=== PATIENT | male | born 1995 | race Caucasian/White ===

== ENCOUNTER 2019-03-25 04:32 | Inpatient (IN) | payer MEDICAID, SELFPAY ==
[2019-03-25] VITALS (55 sets, daily range): BP systolic 90–158; BP diastolic 55–108; PULSE 81–158; RESP 12–26; TEMP 36.6–37.1; O2SAT 96–100
--- NOTE | 2019-03-25 04:30 | DI.RAD_ITS ---
EXAM: XR PORTABLE CHEST AP CLINICAL HISTORY: shortness of breath. TECHNIQUE: 2D digital imaging was performed. COMPARISON: No exams were available for comparison FINDINGS: LUNGS: Clear. No pleural abnormality seen. HEART: Normal. MEDIASTINUM: Normal. OTHER FINDINGS: None. IMPRESSION: No acute pulmonary findings.
--- NOTE | 2019-03-25 04:42 | ED.GENADUL_ITS ---
Discharge Plan Disposition Patient Disposition: [facility] INPATIENT Condition: Serious Discharge Details Chief Complaint: Nausea/Vomit/Diar Clinical Impression: DKA (diabetic ketoacidoses) Primary Care Provider: Ashly,Local ED Provider: Clayton Jones Home Meds and New Rx's Prescriptions: No Action Lantus Solostar U-100 Insulin 100 unit/mL (3 mL) Insulin Pen 27 unit SUBCUT DAILY RF: 0 Medical Decision Making 23 yo male who initially stated he had no medications until his mother spoke up and informed he is on insulin, comes in with 2 days of n/v with some mild epigastric pain. Denies fevers, chills, diarrhea, recent travel, does use marijuana occasionally no other drug use. HE has soft nontender abdomen. HE doesn't seem to know a lot about his diabetes, apparently was diagnosed in january and when asked what his last blood sugar was was over 300 last night around 6pm. On arrival he appears dehydrated, is having kussmaul breathing and has bgfs of over 500. Suspect he is in dka from nonideal insulin management. Will obtain labs, give IVF and monitor. pt's labs show glucose over 500, pH of 7.01 consistent with dka. Will start on half normal saline with 20mEq of K and start insulin drip. Pt remains hd stable, feels mildly better after zofran and IVF. Spoke with Dr. Wilson who will admit to the ICU Differential Diagnosis Differential Diagnosis: dka, gastroenteritis, insulin noncompliance Lab Data Lab results reviewed: Yes I reviewed the patient's lab results. HPI General Mode of arrival: ambulatory . Date/Time Provider Initiated Documentation: 03/25/19 04:34 . Limitations to Documentation: no limitations . Information obtained by: patient . History of Present Illness 23 year old M presents to the emergency department with the chief complaint of nausea and vomit, Patient started experiencing this day(s) (2) and it has been constant. No relieving factors improve symptom(s), No exacerbating factors reported . Patient did receive the following treatments prior to arrival, none Related Data Home Medications Medication Instructions Recorded Confirmed insulin glargine [Lantus Solostar 27 unit SUBCUT DAILY 03/25/19 03/25/19 U-100 Insulin] Allergies Allergy/AdvReac Type Severity Reaction Status Date / Time coconut oil Allergy Severe ANAPHYLAXIS Unverified 02/10/15 09:00 AND HIVES General Stated Complaint: Nausea/Vomit/Diar MAGDALENA: 3 Review of Systems All systems reviewed & are unremarkable except as noted in HPI and below Constitutional Constitutional: Denies chills, Denies fever(s) and Denies weakness Cardiovascular Cardiovascular: Denies chest pain and Denies dyspnea Respiratory Respiratory: Denies cough and Denies dyspnea Genitourinary Genitourinary: Denies dysuria Integumentary/Breasts Skin/Breast: Denies rash Neurologic Neurologic: Denies weakness [facility] Medical History (Updated 03/25/19 @ 05:30 by Clayton Jones MD) Diabetes (Chronic) Social History Smoking/Tobacco Use Status: Never Alcohol Intake: former Drug use: Occasionally Substance use type: marijuana Additional Social history: pt is not alone to assess privately; mother brings pt in Exam Const General: other (tired) Orientation: alert HENMT Head: normal to inspection Ears: external ears normal General nose exam: external nose normal Mouth: mucous membranes dry Eyes General: appearance normal, both eyes and all related structures Neck Neck: normal visual inspection Resp Effort & Inspection: other (kussmaul) Cardio Rate: tachycardic Skin General skin exam: no rashes or lesions noted Neuro General: alert and oriented x3 Extrem General: normal to inspection Psych Mental Status: mental status grossly normal Course Vital Signs Vital signs: Vital Signs Temperature 36.6 C 03/25/19 04:35 Pulse 144 H 03/25/19 04:35 Respiratory Rate 20 03/25/19 04:35 Blood Pressure 144/89 H 03/25/19 04:35 Pulse Oximetry 98 03/25/19 04:35 Temperature 36.6 C 03/25/19 04:35 Pulse 144 H 03/25/19 04:35 Respiratory Rate 20 03/25/19 04:35 Blood Pressure 144/89 H 03/25/19 04:35 Pulse Oximetry 98 03/25/19 04:35 Pain Level 7 03/25/19 04:35 Critical Care Time Critical Care Time Critical Care Time: Yes Total Critical Care Time: 45 (minutes) Attestation: Frequent reassessments, lab review and initiating insulin drip in patient with DKA and potential to deteriorate at any time
[2019-03-25] MEDS: Normal Saline 1,000 ML 1000 ML IV (04:48)
[2019-03-25] MEDS: Ondansetron 4 MG/2 ML VIAL IVP (04:49)
[2019-03-25 04:55] LABS: Abs Immature Grans 0.12 k/cumm (0.0-0.09); Absolute Basophil Count 0.04 k/cumm (0.0-0.2); Absolute Lymphocyte Count 1.15 k/cumm (1.2-3.4); Absolute Monocyte Count 0.68 k/cumm (0.11-0.7); Absolute Neutrophil Count 17.89 k/cumm (1.2-6.7); Basophils % 0.2; HCO3 (Venous) 6 mmol/L (22-28); HCT 53.9 % (40.0-50.0); Immature Grans % 0.6 %; Lymphocytes % 5.8; Mean Corp. HGB Concentration 35.8 g/dL (32.0-36.0); Mean Corpuscular Volume 83.7 fL (80-95); Mean Platelet Volume 10.3 fL (8.0-11.0); Monocytes % 3.4; O2 Sat (Venous) 73 % (70-80); Platelet Count 558 x1000/uL (130-400); RBC 6.44 m/cumm (4.50-6.00); RBC Distribution Width 12.6 % (11.8-14.1); TCO2 (Venous) 6 mmol/L (22-29); White Blood Cell Count 19.88 k/cumm (4.4-10.8); pCO2 (Venous) 25 mm/Hg (34-47); pO2 (Venous) 44 mm/Hg (28-44)
[2019-03-25 05:02] LABS: pH (Venous) 7.01 (7.35-7.45)
[2019-03-25 05:11] LABS: ALT 16 U/L (16-63); AST 17 U/L (15-37); Albumin 5.1 g/dL (3.4-5.0); Alkaline Phosphatase 120 U/L (46-116); Anion Gap 33.9 mmol/L (3-11); BUN 21 mg/dL (7-18); Bilirubin, Total 0.5 mg/dL (0.2-1.0); CO2 8.1 mmol/L (21.0-32.0); Calcium 9.2 mg/dL (8.5-10.1); Chloride 95 mmol/L (98-107); Estimated GFR 41.99 (mL/min/1.73m2); Lipase 138 U/L (73-393); Magnesium 2.3 mg/dL (1.8-2.4); Potassium 4.6 mmol/L (3.5-5.1); Sodium 137 mmol/L (136-145); Total Protein 9.9 g/dL (6.4-8.2)
[2019-03-25 05:14] LABS: Glucose 536 mg/dL (74-106)
[2019-03-25 05:21] LABS: Bilirubin Small (Negative); Blood Moderate (Negative); Clarity Clear (Clear); Glucose 500 mg/dL (Negative); Ketones >=160 mg/dL (Negative); Leukocyte Esterase Negative (Negative); Nitrite Negative (Negative); Specific Gravity >= 1.030 (1.005-1.025); Urobilinogen 0.2 EU/dL (Up TO 0.2); pH 5.5 (5-8)
--- NOTE | 2019-03-25 05:22 | DI.VRAD_ITS ---
PROCEDURE INFORMATION: Exam: XR Chest, 1 View Exam date and time: 03/25/2019 4:59 AM Age: 23 years old Clinical indication: Shortness of breath; Patient HX: SOB; Additional info: Dka TECHNIQUE: Imaging protocol: XR of the chest Views: 1 view. COMPARISON: No relevant prior studies available. FINDINGS: Lungs: Mild chronic interstitial prominence. No consolidation. Pleural space: Unremarkable. No pleural effusion. No pneumothorax. Heart/Mediastinum: Unremarkable. No cardiomegaly. Bones/joints: Unremarkable. IMPRESSION: No acute findings. Dictated and Authenticated by: Andrae Mix MD. Ordering:CORA Arnold MD
[2019-03-25 05:29] LABS: Bacteria Rare HPF (Negative); C & S Indicated? No; Casts Negative LPF (Negative); Crystals Negative HPF (Negative); Epithelial Cells Rare HPF (Negative); Mucus Negative (Negative); WBC Negative HPF (0-5)
[2019-03-25 05:40] LABS: HGB 19.3 g/dL (13.5-17.5)
[2019-03-25 05:43] LABS: Polychromasia Present
[2019-03-25] MEDS: INSULIN REGULAR IN 0.9 % NACL 100 UNIT/100 ML BAG 6.5 UNIT IV (05:50)
--- NOTE | 2019-03-25 06:27 | HPE_ITS ---
Date of service: 03/25/19 Time of Service: 06:27 Assessment and Plan Assessment and plan (1) Type 1 diabetes mellitus: Status: Acute Assessment and plan: Relatively new onset type 1 diabetes. This is his third hospitalization. This admission appears to be precipitated by an acute gastroenteritis with severe dehydration. Plan is for an insulin infusion, IV fluids, gradually reintroduce oral nutrition. Every hour fingersticks with adjustments as per [place] protocol. (2) DKA (diabetic ketoacidoses): Status: Acute Assessment and plan: Currently on half normal saline with 20 mEq potassium . Will add D5 when blood sugar below 200. Recheck basic metabolic panel at 11 AM. History of Present Illness History of Present Illness Chief Complaint: DKA/type 1 diabetes Narrative: This is a 23-year-old male diagnosed with type 1 diabetes in January 2019. He was hospitalized at [facility]. He states he was initially started on oral agents then on his second admission was transition to insulin. He presented to the emergency room overnight with severe nausea and vomiting for the last 3 days. He has not been able to hold any nutrition down. His blood sugars were in the 300s. On presentation his blood sugar was greater than 500, pH 7.01, bicarb 8.1, anion gap 33.9. He received normal saline bolus x1 L and then started on half-normal saline with 20 mEq potassium at 250 cc an hour. He was started on an insulin infusion at 6.5 units/h. He is transferred to the ICU for close monitoring. Review of Systems Narrative: He has been sick for the last 3 days with severe nausea and vomiting. No chest pain no shortness of breath. He has no respiratory symptoms. He is not having diarrhea. Overall achy. No other complaints. REPLACED BY [facility] Medical History (Updated 03/25/19 @ 06:38 by Clayton Wilson MD) ADHD (attention deficit hyperactivity disorder) (Acute) Hepatitis C (Chronic) Right hand fracture (Acute) s/p pinning, [facility] Tobacco use (Acute) Type 1 diabetes mellitus (Acute) Social History (Updated 03/25/19 @ 06:42 by Clayton Wilson MD) Smoking/Tobacco Use Status: Current every day Alcohol Intake: former Year quit: 2018 Drug use: Occasionally Substance use type: marijuana Household members: family Additional Social history: Currently lives with his mother. Previously employed until the onset of type 1 diabetes. Completed 12th grade. Meds Home Medications and Allergies Home Medications Medication Instructions Recorded Confirmed Type insulin glargine [Lantus Solostar 27 unit SUBCUT DAILY 03/25/19 03/25/19 History U-100 Insulin] Allergies Allergy/AdvReac Type Severity Reaction Status Date / Time coconut oil Allergy Severe ANAPHYLAXIS Unverified 02/10/15 09:00 AND HIVES Exam Narrative Exam Narrative: On exam he has an odor of ketones. He is alert and able to answer questions appropriately. His respiratory rate is rapid. Pulse is rapid. He is slightly jittery. His pulse rate climbs and his blood pressure drops when he stands. His lung exam is clear on the right and left. Heart is rapid but without murmur. Abdomen is flat soft and nontender no HSM detected. Lower extremities no edema. Neurologically no focal deficits. Results Labs Result diagrams: 03/25/19 04:40 03/25/19 04:40 Labs: Laboratory Results - last 24 hr 03/25/19 03/25/19 03/25/19 04:40 04:40 04:40 WBC 19.88 H RBC 6.44 H Hgb 19.3 H* Hct 53.9 H MCV 83.7 MCH 30.0 MCHC 35.8 RDW 12.6 Plt Count 558 H MPV 10.3 Immature Gran % 0.6 Neutrophils % 90.0 Lymphocytes % 5.8 Monocytes % 3.4 Eosinophils % 0.0 Basophils % 0.2 Absolute Neutrophils 17.89 H Absolute Lymphocytes 1.15 L Absolute Monocytes 0.68 Absolute Eosinophils 0.00 Absolute Basophils 0.04 RBC Morphology See below Polychromasia Present VBG pH 7.01 L* VBG pCO2 25 L VBG pO2 44 VBG HCO3 6 L VBG Total CO2 6 L VBG O2 Saturation 73 VBG Base Excess < -15.0 L Sodium 137 Potassium 4.6 Chloride 95 L Carbon Dioxide 8.1 L Anion Gap 33.9 H BUN 21 H Creatinine 2.00 H Estimated GFR/1.73 m2 41.99 Glucose 536 H* Calcium 9.2 Magnesium 2.3 Total Bilirubin 0.5 AST 17 ALT 16 Alkaline Phosphatase 120 H Total Protein 9.9 H Albumin 5.1 H Lipase 138 Urine Color Urine Clarity Urine pH Ur Specific [place] Urine Protein Urine Ketones Urine Blood Urine Nitrite Urine Bilirubin Urine Urobilinogen Ur Leukocyte Esterase Urine RBC Urine WBC Ur Epithelial Cells Urine Crystals Urine Bacteria Urine Casts Urine Mucus Ur Culture Indicated? Urine Glucose 03/25/19 05:09 WBC RBC Hgb Hct MCV MCH MCHC RDW Plt Count MPV Immature Gran % Neutrophils % Lymphocytes % Monocytes % Eosinophils % Basophils % Absolute Neutrophils Absolute Lymphocytes Absolute Monocytes Absolute Eosinophils Absolute Basophils RBC Morphology Polychromasia VBG pH VBG pCO2 VBG pO2 VBG HCO3 VBG Total CO2 VBG O2 Saturation VBG Base Excess Sodium Potassium Chloride Carbon Dioxide Anion Gap BUN Creatinine Estimated GFR/1.73 m2 Glucose Calcium Magnesium Total Bilirubin AST ALT Alkaline Phosphatase Total Protein Albumin Lipase Urine Color Yellow Urine Clarity Clear Urine pH 5.5 Ur Specific [place] >= 1.030 H Urine Protein >=300 H Urine Ketones >=160 H Urine Blood Moderate H Urine Nitrite Negative Urine Bilirubin Small H Urine Urobilinogen 0.2 Ur Leukocyte Esterase Negative Urine RBC 3-5 H Urine WBC Negative Ur Epithelial Cells Rare Urine Crystals Negative Urine Bacteria Rare Urine Casts Negative Urine Mucus Negative Ur Culture Indicated? No Urine Glucose 500 H Last Vital Signs Temp 36.6 C 03/25/19 04:35 Pulse 144 H 03/25/19 04:35 Resp 20 03/25/19 04:35 BP 144/89 H 03/25/19 04:35 Pulse Ox 98 03/25/19 04:35
[2019-03-25] MEDS: POTASSIUM CHLORIDE/D5-0.45NACL 1,000 ML 150 MEQ IV (08:03)
--- NOTE | 2019-03-25 08:28 | W.PM.PROGNOT ---
Date of Service Date of service: 03/25/19 Time of Service: 12:48 Assessment and Plan Assessment and plan (1) DKA (diabetic ketoacidoses): Status: Acute Assessment and plan: Remains on insulin gtt. Metabolic acidosis and anion gap are better, but not near normalized. Continue insulin gtt, aggressive IVF. Make NPO as the patient is nauseated and carb intake is likely to make DKA worse at this time. Will give 1/2 of the long acting insulin at this time. Continue to monitor BMP/Mag (next check at 3 pm, then 8 pm, then midnight, then am blood draw). Consult diabetes education. (2) Prerenal acute renal failure: Status: Acute Assessment and plan: Improving with IVF - continue to monitor kidney function. Refuses alexandra catheter - monitor I/O's and daily weights. (3) Type 1 diabetes mellitus: Status: Acute Assessment and plan: Recent diagnosis. At home, on 28 units of lantus Q am and 6 units of novolog with meals. We spoke for a while about not missing lantus even when he is sick. He does not have an clinical laboratory assistant and could benefit from one. Consult diabetes education. For now, start 1/2 dose of lantus and attempt to wean insulin gtt. (4) Dehydration: Status: Acute Assessment and plan: Continue aggressive IVF (5) Leucocytosis: Status: Acute Assessment and plan: Likely due to hemoconcentration as also has thrombocytosis and erythromcytosis on the same draw. Recheck in am. No evidence of acute infectious process at this time. (6) Proteinuria due to type 1 diabetes mellitus: Status: Acute Assessment and plan: May benefit from initiation of an hany-i once out of BLAKE. Would benefit from formal 24 hour urine collection. (7) Discharge planning issues: Status: Acute Assessment and plan: Full code. Keep in ICU. (8) DVT prophylaxis: Status: Acute Assessment and plan: Given BLAKE and critical illness, would merit chemical DVT ppx. Start heparin SC. Total Critical Care Time 45 minutes. Subjective Subjective Interval history since last seen: BG 229 on insulin gtt @ 3 units/hr. Ate lunch. Did not receive coverage. Nauseated. Denies dizziness, chest pain, shortness of breath, abdominal pain. Spent a lot of the day sleeping. Easily arousable. Resp. status ok - 98% on RA, Not tachypneic. Exam Narrative Exam Narrative: General: Somnolent, easily arousable male, laying comfortably in bed, asleep, A&Ox3, no respiratory distress HEENT: EOMI, dry MM Heart: RRR, loud precordial sounds Lungs: CTAB - diminished Abdomen: soft, nontender, nondistended Extremities: no e/c/c BLE's Objective Objective Clinical Data: Abnormal lab results 03/25/19 03/25/19 03/25/19 Range/Units 04:40 04:40 04:40 WBC 19.88 H (4.4-10.8) k/cumm RBC 6.44 H (4.50-6.00) m/cumm Hgb 19.3 H* (13.5-17.5) g/dL Hct 53.9 H (40.0-50.0) % Plt Count 558 H (130-400) x1000/uL Absolute Neutrophils 17.89 H (1.2-6.7) k/cumm Absolute Lymphocytes 1.15 L (1.2-3.4) k/cumm VBG pH 7.01 L* (7.35-7.45) VBG pCO2 25 L (34-47) mm/Hg VBG HCO3 6 L (22-28) mmol/L VBG Total CO2 6 L (22-29) mmol/L VBG Base Excess < -15.0 L (-3-3) mmol/L Chloride 95 L (98-107) mmol/L Carbon Dioxide 8.1 L (21.0-32.0) mmol/L Anion Gap 33.9 H (3-11) mmol/L BUN 21 H (7-18) mg/dL Creatinine 2.00 H (0.70-1.30) mg/dL Glucose 536 H* (74-106) mg/dL Alkaline Phosphatase 120 H (46-116) U/L Total Protein 9.9 H (6.4-8.2) g/dL Albumin 5.1 H (3.4-5.0) g/dL Ur Specific [place] (1.005-1.025) Urine Protein (Negative) mg/dL Urine Ketones (Negative) mg/dL Urine Blood (Negative) Urine Bilirubin (Negative) Urine RBC (0-2) HPF Urine Glucose (Negative) mg/dL 03/25/19 Range/Units 05:09 WBC (4.4-10.8) k/cumm RBC (4.50-6.00) m/cumm Hgb (13.5-17.5) g/dL Hct (40.0-50.0) % Plt Count (130-400) x1000/uL Absolute Neutrophils (1.2-6.7) k/cumm Absolute Lymphocytes (1.2-3.4) k/cumm VBG pH (7.35-7.45) VBG pCO2 (34-47) mm/Hg VBG HCO3 (22-28) mmol/L VBG Total CO2 (22-29) mmol/L VBG Base Excess (-3-3) mmol/L Chloride (98-107) mmol/L Carbon Dioxide (21.0-32.0) mmol/L Anion Gap (3-11) mmol/L BUN (7-18) mg/dL Creatinine (0.70-1.30) mg/dL Glucose (74-106) mg/dL Alkaline Phosphatase (46-116) U/L Total Protein (6.4-8.2) g/dL Albumin (3.4-5.0) g/dL Ur Specific [place] >= 1.030 H (1.005-1.025) Urine Protein >=300 H (Negative) mg/dL Urine Ketones >=160 H (Negative) mg/dL Urine Blood Moderate H (Negative) Urine Bilirubin Small H (Negative) Urine RBC 3-5 H (0-2) HPF Urine Glucose 500 H (Negative) mg/dL Vital Signs Temperature 36.8 C 03/25/19 06:17 Temperature Source Temporal Artery Scan 03/25/19 06:17 Pulse 123 H 03/25/19 06:31 Pulse 121 H 03/25/19 06:31 Respiratory Rate 25 H 03/25/19 06:31 Respiratory Effort 03/25/19 06:17 Respiratory Depth Normal 03/25/19 06:17 Respiratory Pattern Tachypnea 03/25/19 06:17 Blood Pressure 149/88 H 03/25/19 06:31 Blood Pressure Mean 99 03/25/19 06:31 Pulse Oximetry 100 03/25/19 06:31 Oxygen Delivery Method Room Air 03/25/19 06:17 Oxygen Flow Rate 0 03/25/19 06:17 Pain Level 7 03/25/19 04:35 Intake & Output 03/24/19 03/24/19 03/25/19 11:59 23:59 11:59 Intake Total 1109.425 / 1109.425 Output Total 450 / 450 Balance 659.425 / 659.425 Weight 61.5 kg Intake: IV 1009.425 / 1009.425 Oral 100 / 100 Output: Urine 450 / 450 Other: Urine Color Yellow Urine Appearance Clear Urine Odor Normal Emesis Description Bile Laboratory Results WBC 19.88 k/cumm (4.4-10.8) H 03/25/19 04:40 RBC 6.44 m/cumm (4.50-6.00) H 03/25/19 04:40 Hgb 19.3 g/dL (13.5-17.5) H* 03/25/19 04:40 Hct 53.9 % (40.0-50.0) H 03/25/19 04:40 MCV 83.7 fL (80-95) 03/25/19 04:40 MCH 30.0 pg (27.0-33.0) 03/25/19 04:40 MCHC 35.8 g/dL (32.0-36.0) 03/25/19 04:40 RDW 12.6 % (11.8-14.1) 03/25/19 04:40 Plt Count 558 x1000/uL (130-400) H 03/25/19 04:40 MPV 10.3 fL (8.0-11.0) 03/25/19 04:40 Immature Gran % 0.6 % 03/25/19 04:40 Neutrophils % 90.0 03/25/19 04:40 Lymphocytes % 5.8 03/25/19 04:40 Monocytes % 3.4 03/25/19 04:40 Eosinophils % 0.0 03/25/19 04:40 Basophils % 0.2 03/25/19 04:40 Absolute Neutrophils 17.89 k/cumm (1.2-6.7) H 03/25/19 04:40 Absolute Lymphocytes 1.15 k/cumm (1.2-3.4) L 03/25/19 04:40 Absolute Monocytes 0.68 k/cumm (0.11-0.7) 03/25/19 04:40 Absolute Eosinophils 0.00 k/cumm (0.0-0.7) 03/25/19 04:40 Absolute Basophils 0.04 k/cumm (0.0-0.2) 03/25/19 04:40 RBC Morphology See below 03/25/19 04:40 Polychromasia Present 03/25/19 04:40 VBG pH 7.01 (7.35-7.45) L* 03/25/19 04:40 VBG pCO2 25 mm/Hg (34-47) L 03/25/19 04:40 VBG pO2 44 mm/Hg (28-44) 03/25/19 04:40 VBG HCO3 6 mmol/L (22-28) L 03/25/19 04:40 VBG Total CO2 6 mmol/L (22-29) L 03/25/19 04:40 VBG O2 Saturation 73 % (70-80) 03/25/19 04:40 VBG Base Excess < -15.0 mmol/L (-3-3) L 03/25/19 04:40 Sodium 137 mmol/L (136-145) 03/25/19 04:40 Potassium 4.6 mmol/L (3.5-5.1) 03/25/19 04:40 Chloride 95 mmol/L (98-107) L 03/25/19 04:40 Carbon Dioxide 8.1 mmol/L (21.0-32.0) L 03/25/19 04:40 Anion Gap 33.9 mmol/L (3-11) H 03/25/19 04:40 BUN 21 mg/dL (7-18) H 03/25/19 04:40 Creatinine 2.00 mg/dL (0.70-1.30) H 03/25/19 04:40 Estimated GFR/1.73 m2 41.99 (mL/min/1.73m2) 03/25/19 04:40 Glucose 536 mg/dL (74-106) H* 03/25/19 04:40 Calcium 9.2 mg/dL (8.5-10.1) 03/25/19 04:40 Magnesium 2.3 mg/dL (1.8-2.4) 03/25/19 04:40 Total Bilirubin 0.5 mg/dL (0.2-1.0) 03/25/19 04:40 AST 17 U/L (15-37) 03/25/19 04:40 ALT 16 U/L (16-63) 03/25/19 04:40 Alkaline Phosphatase 120 U/L (46-116) H 03/25/19 04:40 Total Protein 9.9 g/dL (6.4-8.2) H 03/25/19 04:40 Albumin 5.1 g/dL (3.4-5.0) H 03/25/19 04:40 Lipase 138 U/L (73-393) 03/25/19 04:40 Urine Color Yellow (Yellow) 03/25/19 05:09 Urine Clarity Clear (Clear) 03/25/19 05:09 Urine pH 5.5 (5-8) 03/25/19 05:09 Ur Specific [place] >= 1.030 (1.005-1.025) H 03/25/19 05:09 Urine Protein >=300 mg/dL (Negative) H 03/25/19 05:09 Urine Ketones >=160 mg/dL (Negative) H 03/25/19 05:09 Urine Blood Moderate (Negative) H 03/25/19 05:09 Urine Nitrite Negative (Negative) 03/25/19 05:09 Urine Bilirubin Small (Negative) H 03/25/19 05:09 Urine Urobilinogen 0.2 EU/dL (Up TO 0.2) 03/25/19 05:09 Ur Leukocyte Esterase Negative (Negative) 03/25/19 05:09 Urine RBC 3-5 HPF (0-2) H 03/25/19 05:09 Urine WBC Negative HPF (0-5) 03/25/19 05:09 Ur Epithelial Cells Rare HPF (Negative) 03/25/19 05:09 Urine Crystals Negative HPF (Negative) 03/25/19 05:09 Urine Bacteria Rare HPF (Negative) 03/25/19 05:09 Urine Casts Negative LPF (Negative) 03/25/19 05:09 Urine Mucus Negative (Negative) 03/25/19 05:09 Ur Culture Indicated? No 03/25/19 05:09 Urine Glucose 500 mg/dL (Negative) H 03/25/19 05:09 CXR: No acute pulmonary findings.
[2019-03-25] MEDS: POTASSIUM CHLORIDE/0.9% NACL 1,000 ML 150 MEQ IV (08:39)
[2019-03-25] MEDS: Acetaminophen 325 MG TAB PO (10:24)
[2019-03-25 11:01] LABS: HCO3 (Venous) 10 mmol/L (22-28); O2 Sat (Venous) 96 % (70-80); TCO2 (Venous) 9 mmol/L (22-29); pCO2 (Venous) 24 mm/Hg (34-47); pH (Venous) 7.24 (7.35-7.45); pO2 (Venous) 78 mm/Hg (28-44)
[2019-03-25 11:17] LABS: Anion Gap 23.4 mmol/L (3-11); BUN 18 mg/dL (7-18); CO2 10.6 mmol/L (21.0-32.0); CREATININE 1.34 mg/dL (0.70-1.30); Calcium 8.8 mg/dL (8.5-10.1); Chloride 103 mmol/L (98-107); Glucose 269 mg/dL (74-106); Potassium 4.2 mmol/L (3.5-5.1); Sodium 137 mmol/L (136-145)
--- NOTE | 2019-03-25 12:33 | W.INDIABCONS ---
Date of service: 03/25/19 Time of Service: 12:33 Diabetes Inpatient Consult DESCRIPTION/ASSESSMENT: Appreciate diabetes consult for Ted Egan who is here with DKA in presence of severe nausea and vomiting for 3 days prior. Recently diagnosed type 1 with strong family history of brother, father, grandmother with diabetes. Mr. Egan states he did not administer any insulin while he was sick because he was sleeping through unless he was vomiting. States he was instructed to take 28u Lantus and mealtime insulin correction which was always 6 units. States blood sugars consistently in the 300s. States he does not know about requiring insulin when eating carbohydrate. BMI 18 Attempted to visit him again to discuss carbohydrate sources, portions, distribution, however states he has a headache. Education visit postponed until he feels better. He remains on insulin drip at this time. Blood sugars down to 269 this AM unable to see frequent fingersticks in EMR. INTERVENTION: Ted is eating lunch but there is no concomitant insulin dose for carbohydrate at this time. This is suggested at 1 unit covers 15 grams carbohydrate which may need to be advanced to 1 unit covers 10 grams based on his home insulin regimen of total daily insulin dosing of 46units daily. PLAN: Will follow up with him for self management support focused on insulin for carbohydrate as standard of care for type 1 diabetes. Will follow blood sugars Time Spent in Nutritional Counseling and Treatment: 10 minutes face to face
--- NOTE | 2019-03-25 12:56 | W.NUTCONSULT ---
Date of service: 03/25/19 Time of Service: 12:57 Nutritional Consult ASSESSMENT: 23 year old newly diagnosis Type 1 Diabetic(January 2019) admitted with DKA and acute gastroenteritis and dehydration. Following Diabetic diet with excellent intake. DM consult by CDE pending. Not at nutritional risk at this time. MONITORING AND EVALUATION: weight, po intake, labs Time Spent in Nutritional Counseling and Treatment: 0 time spent face to face
[2019-03-25 13:15] LABS: Hemoglobin A1C 13.2 % (3.8-5.6)
[2019-03-25] MEDS: Pantoprazole 40 MG VIAL IVP (13:42)
[2019-03-25] MEDS: Bacitracin 1 PACKET 2 PACKET TP ×2 (13:43→19:32)
[2019-03-25] MEDS: Normal Saline Flush 10 ML SYR IVP (13:44)
[2019-03-25] MEDS: Heparin 5,000 UNITS/ML VIAL 5000 UNITS SC (13:44)
[2019-03-25 15:40] LABS: Anion Gap 15.6 mmol/L (3-11); BUN 15 mg/dL (7-18); CO2 16.4 mmol/L (21.0-32.0); CREATININE 1.25 mg/dL (0.70-1.30); Chloride 106 mmol/L (98-107); Glucose 198 mg/dL (74-106); Potassium 3.9 mmol/L (3.5-5.1); Sodium 138 mmol/L (136-145)
--- NOTE | 2019-03-25 16:20 | PDOC.CMIN ---
- If Service Date Differs Date of service: 03/25/19 Time of Service: 16:20 Care Management Initial Assess REASON FOR HOSPITALIZATION:: DKA PAST MEDICAL HISTORY/PAST SURGICAL HISTORY:: Medical History (Updated 03/25/19 @ 06:38 by Clayton Wilson MD). ADHD (attention deficit hyperactivity disorder) (Acute). Hepatitis C (Chronic). Right hand fracture (Acute). s/p pinning, [facility]. Tobacco use (Acute). Type 1 diabetes mellitus (Acute) PREVIOUS FUNCTIONAL STATUS/SOCIAL/FAMILY SUPPORTS:: Ted lives in [place] in a mobile home with his mother and 16 year old brother Bernard. He is not currentloy employed; he was recently fired from his job because he missed a lot of work due to illness. Ted is independent at baseline and receives no community services. CURRENT FUNCTIONAL STATUS:: Ted was lying in bed when CM met with him. He was polite and respecttful but did not maintain eye contact or volunteer any information. Ted shared that he was diagnosed with diabetes in January and that he had been sick for a while. When questioned, he stated that he feels he has a good understanding of how to check his glucose levels and how to administer insulin. ADVANCE DIRECTIVES:: none and is not interested Has patient been provided with information about the portal?: Yes Did the patient sign up for the portal?: No CODE STATUS:: Full Code INSURANCE COVERAGE / FINANCIAL ISSUES:: Medicaid CURRENT HOME/COMMUNITY SERVICES/EQUIPMENT:: none PRIMARY CARE PHYSICIAN:: Marissa from [facility] POTENTIAL DISCHARGE NEEDS:: follow up with PCP and possibly endocrinology. PATIENT/FAMILY EDUCATION NEEDS:: Discharge plan, limitations, follow up plan. Ask Me Three. TRANSPORTATION:: via [employer] vehicle with mother PLAN:: Ted will be discharged home whem medically ready. He will follow up with his PCP and possibly Endocrinology. CM will continue to support patient, family an discharge planning needs.
[2019-03-25] MEDS: POTASSIUM CHLORIDE/D5-0.9%NACL 1,000 ML 150 MEQ IV (16:25)
[2019-03-25] MEDS: Insulin Glargine 300 UNITS/3 ML PEN 14 UNITS SC ×2 (16:33→22:07)
--- NOTE | 2019-03-25 16:43 | PHARADMIT ---
Admission Pharmacy Clinical Review DKA Code Status Full Code Current Weight 61.5 kg Renally Cleared and Narrow Therapeutic Index Meds Crcl ~80 mL/min current meds okay QTc Value / Action Taken QTc 483 none BP Control, Fever BP 134/82 afebrile Electrolytes reviewed within normal limits DVT Prophylaxis heparin Opiate Usage / Scheduled Bowel Regimen Ordered no/prn Plt/SCr for Heparin / Enoxaparin plt 558 SCr 1.25 INR for Warfarin n/a H/H stable, WBC/Bands h/h 19.3/53.9 WBC 19.88 Antibiotic appropriateness none Cultures and Sensitivities none Surgical ABX d/c within 24 hr n/a DM control / Insulin Dosing BG 198 insulin drip ordered, has gotten now doses of insulin glargine Heart Failure (Check EF%) (CRISPIN's, B-Block, Diuretics) none IV to PO Switch n/a Home Meds Reviewed yes Home Meds Not Ordered insulin aspart and insulin glargine (currently on insulin drip. attempting to wean pt from this) Comments watch for the addition of any QTc prolonging meds
[2019-03-25 20:41] LABS: Anion Gap 13.6 mmol/L (3-11); BUN 15 mg/dL (7-18); CO2 18.4 mmol/L (21.0-32.0); CREATININE 1.27 mg/dL (0.70-1.30); Chloride 107 mmol/L (98-107); Glucose 132 mg/dL (74-106); Potassium 3.5 mmol/L (3.5-5.1); Sodium 139 mmol/L (136-145)
[2019-03-25] MEDS: POTASSIUM CHLORIDE/0.9% NACL 1,000 ML 125 MEQ IV (22:08)
[2019-03-26] VITALS (12 sets, daily range): BP systolic 109–130; BP diastolic 61–86; PULSE 56–96; RESP 12–19; TEMP 36.7–37.2; O2SAT 99–100
[2019-03-26 00:48] LABS: BUN 15 mg/dL (7-18); CREATININE 1.07 mg/dL (0.70-1.30); Calcium 8.1 mg/dL (8.5-10.1); Chloride 102 mmol/L (98-107); Glucose 235 mg/dL (74-106); Magnesium 1.7 mg/dL (1.8-2.4); Potassium 3.8 mmol/L (3.5-5.1); Sodium 135 mmol/L (136-145)
[2019-03-26] MEDS: Heparin 5,000 UNITS/ML VIAL 5000 UNITS SC ×2 (01:27→14:23)
[2019-03-26] MEDS: MAGNESIUM SULFATE 1 GM/100 ML BAG IVPB (01:30)
[2019-03-26] MEDS: Insulin Aspart 300 UNITS/3 ML PEN 8 UNITS SC (01:30)
[2019-03-26] MEDS: POTASSIUM CHLORIDE/0.9% NACL 1,000 ML 125 MEQ IV (05:28)
[2019-03-26 06:20] LABS: BE (Venous) -11.9 mmol/L (-3-3); HCO3 (Venous) 14 mmol/L (22-28); O2 Sat (Venous) 99 % (70-80); TCO2 (Venous) 13 mmol/L (22-29); pCO2 (Venous) 28 mm/Hg (34-47); pH (Venous) 7.32 (7.35-7.45); pO2 (Venous) 129 mm/Hg (28-44)
[2019-03-26 06:24] LABS: Abs Immature Grans 0.01 k/cumm (0.0-0.09); Absolute Basophil Count 0.02 k/cumm (0.0-0.2); Absolute Eosinophil Count 0.05 k/cumm (0.0-0.7); Absolute Lymphocyte Count 1.78 k/cumm (1.2-3.4); Absolute Monocyte Count 0.68 k/cumm (0.11-0.7); Absolute Neutrophil Count 5.17 k/cumm (1.2-6.7); Basophils % 0.3; Eosinophils % 0.6; HCT 40.2 % (40.0-50.0); Immature Grans % 0.1 %; Lymphocytes % 23.1; Mean Corp. HGB Concentration 35.8 g/dL (32.0-36.0); Mean Corpuscular Hemoglobin 29.9 pg (27.0-33.0); Mean Corpuscular Volume 83.6 fL (80-95); Mean Platelet Volume 9.7 fL (8.0-11.0); Monocytes % 8.8; Neutrophils % 67.1; RBC 4.81 m/cumm (4.50-6.00); RBC Distribution Width 12.5 % (11.8-14.1); White Blood Cell Count 7.71 k/cumm (4.4-10.8)
[2019-03-26 06:29] LABS: HGB 14.4 g/dL (13.5-17.5); Platelet Count 324 x1000/uL (130-400)
[2019-03-26 06:31] LABS: Anion Gap 16.1 mmol/L (3-11); BUN 15 mg/dL (7-18); CO2 15.9 mmol/L (21.0-32.0); CREATININE 1.05 mg/dL (0.70-1.30); Calcium 7.7 mg/dL (8.5-10.1); Chloride 106 mmol/L (98-107); Glucose 187 mg/dL (74-106); Potassium 3.3 mmol/L (3.5-5.1); Sodium 138 mmol/L (136-145)
[2019-03-26] MEDS: Potassium Chloride 20 MEQ TABCR 40 MEQ PO (08:06)
[2019-03-26] MEDS: Bacitracin 1 PACKET 2 PACKET TP ×2 (08:06→14:23)
[2019-03-26] MEDS: Lactated Ringers 1,000 ML 100 ML IV (08:08)
[2019-03-26 08:23] LABS: BE (Venous) -10.9 mmol/L (-3-3); HCO3 (Venous) 16 mmol/L (22-28); O2 Sat (Venous) 71 % (70-80); TCO2 (Venous) 14 mmol/L (22-29); pCO2 (Venous) 33 mm/Hg (34-47); pH (Venous) 7.28 (7.35-7.45); pO2 (Venous) 34 mm/Hg (28-44)
[2019-03-26] MEDS: Insulin Aspart 300 UNITS/3 ML PEN SC ×2 (08:29→12:08)
[2019-03-26] MEDS: Insulin Aspart 300 UNITS/3 ML PEN 6 UNITS SC ×2 (08:30→12:09)
[2019-03-26] MEDS: Insulin Glargine 300 UNITS/3 ML PEN 15 UNITS SC (08:31)
[2019-03-26 12:20] LABS: BE (Venous) -7.7 mmol/L (-3-3); HCO3 (Venous) 18 mmol/L (22-28); O2 Sat (Venous) 78 % (70-80); TCO2 (Venous) 16 mmol/L (22-29); pCO2 (Venous) 34 mm/Hg (34-47); pH (Venous) 7.33 (7.35-7.45); pO2 (Venous) 38 mm/Hg (28-44)
[2019-03-26 12:33] LABS: Anion Gap 10.9 mmol/L (3-11); BUN 13 mg/dL (7-18); CO2 20.1 mmol/L (21.0-32.0); CREATININE 0.89 mg/dL (0.70-1.30); Calcium 8.2 mg/dL (8.5-10.1); Chloride 104 mmol/L (98-107); Glucose 206 mg/dL (74-106); Sodium 135 mmol/L (136-145)
[2019-03-26] MEDS: Normal Saline Flush 10 ML SYR IVP (14:22)
[2019-03-26] MEDS: Pantoprazole 40 MG VIAL IVP (14:23)
--- NOTE | 2019-03-26 14:49 | DSE_ITS ---
Date of service: 03/26/19 Time of Service: 14:49 DS: Diagnosis Discharge Diagnosis (1) DKA (diabetic ketoacidoses): Status: Acute (2) Prerenal acute renal failure: Status: Acute (3) Type 1 diabetes mellitus: Status: Acute (4) Dehydration: Status: Acute (5) Leucocytosis: Status: Acute (6) Proteinuria due to type 1 diabetes mellitus: Status: Acute Discharge Plan Disposition Patient Disposition: HOME Condition: Stable Discharge Details Chief Complaint: Nausea/Vomit/Diar Clinical Impression: DKA (diabetic ketoacidoses) Reason For Visit: DKA Admit Date/Time: 03/25/19 05:22 Admit Provider: Clayton Wilson Attending Provider: Clayton Wilson [facility] Provider: Clayton Jones Hospital Course Hospital Course: Mr Egan is a 23 year old male with a relatively recent diagnosis of type 1 DM who was admitted to [facility] ICU on 03/25/2019 with a diagnosis of DKA. He required intravenous insulin for less than 24 hours and was transitioned to modified doses of basal bolus insulin. He is meeting with a special educator right now. We are making some modifications to his insulin regimen - specifically, tonight he will take 10 units of lantus, tomorrow morning he will take 24 units of lantus, and on the morning of 03/28/2019, he will transition to 30 units of lantus in am, which he should continue. His prandial (humalog) insulin dose is changing to 8 units AC with a corrective scale of 1:50>200. He is being referred to outpatient diabetic education and endocrinology. He was educated on hypoglycemia, but until this hospitalization was not familiar with the concept. This will need to be reinforced with his PCP. Patient is medically stable for discharge home today. He has a meter and sufficient strips at home. Care for patient as well as completion of his discharge summary took 45 minutes on day of discharge. Home Meds and New Rx's Prescriptions: New nicotine 14 mg/24 hr Patch 24 Hour 14 mg transdermal DAILY PRN PRNQty: 30 RF: 0 Changed insulin lispro [Humalog KwikPen Insulin] 100 unit/mL Insulin Pen See Rx Instructions .ROUTE .COMPLEX Qty: 0 RF: 0 Lantus Solostar U-100 Insulin 100 unit/mL (3 mL) Insulin Pen See Rx Instructions .ROUTE .COMPLEX Qty: 0 RF: 0 Discharge Instructions Instructions: Diabetic Ketoacidosis (DC), Diabetic Hypoglycemia (DC) Additional Instructions: Return to the hospital with any fever, bleeding, chest pain, shortness of breath. Follow up with Dr Umanzor (your PCP) at [facility] ([facility]) on March 29, at 10:45 am. Follow up with Diabetes Education. Follow up with endocrinology. On 03/26/2019, take 10 units of lantus at night. Take 24 units of lantus tomorrow morning (03/27/2019). Take 30 units of lantus on the morning of 03/28/2019 - this is the dose you should take every morning starting on 03/28/2019. Humalog: take 8 units with every meal in addition to the sliding scale: 1 extra unit for every 50 points that your blood sugar is over 200. Call your PCP if your blood sugar is >400. Know signs and symptoms of hypoglycemia. Always have a way to correct hypoglycemia (orange juice, glucose tablets) on you. Referrals: ENDOCRINOLOGY,[facility] [place] [OTHER] - (recent diagnosis of T1DM) Marissa Umanzor [NURSE PRACTITIONER] - 03/29/19 10:45 am (Follow up post admi ssion for DKA) Kristy Uribe [CLINICAL TRIALS SYSTEMS ADMINISTRATOR] - (Diabetes education) Activity:: Activity as Tolerated Equipment/Supplies:: No Equipment Needed Diet:: Carb Counting Discharge Orders Discharge Orders: Discharge Order (Routine); Ordered 03/26/19 Ordered By: Anuradha Huang DS: Summary Status at Discharge Functional status at discharge: independent ambulation Overall status at discharge: patient is back to baseline Mental Status: mental status grossly normal Speech and Movement: speech and movement normal Mood: congruent mood Affect: normal affect Exam Narrative Exam Narrative: General: Awake and alert male, A&Ox3, looks much better HEENT: EOMI, MMM Heart: RRR, loud precordial sounds Lungs: CTAB - diminished Abdomen: soft, nontender, nondistended Extremities: no e/c/c BLE's Psych Mental Status: mental status grossly normal Speech and Movement: speech and movement normal Mood: congruent mood Affect: normal affect DS: Data Vitals/I&O Vitals and I&O: Vital Signs Temperature 36.8 C 03/26/19 11:49 Temperature Source Temporal Artery Scan 03/26/19 11:49 Pulse 60 03/26/19 11:49 Pulse 96 H 03/26/19 12:19 Respiratory Rate 12 03/26/19 12:19 Respiratory Effort 03/26/19 11:49 Respiratory Depth Normal 03/26/19 11:49 Respiratory Pattern Normal 03/26/19 11:49 Blood Pressure 127/86 03/26/19 11:49 Blood Pressure Mean 99 03/26/19 11:49 Blood Pressure Position Supine 03/26/19 11:49 Pulse Oximetry 100 03/26/19 11:49 Oxygen Delivery Method Room Air 03/26/19 11:49 Oxygen Flow Rate 0 03/26/19 11:49 Pain Level 0 03/26/19 11:49 Intake & Output 03/25/19 03/26/19 03/26/19 23:59 11:59 23:59 Intake Total 3895.775 / 5359.933 1901.917 / 1901.917 Output Total 550 / 1450 Balance 3345.775 / 3909.933 1901.917 / 1901.917 Intake: IV 2675.775 / 3699.933 1247.917 / 1247.917 Oral 1220 / 1660 654 / 654 Output: Urine 550 / 1450 Other: Urine Color Light Sandy Urine Appearance Clear Urine Odor Strong Comment pt has not urinated since 11:25 this am- md notified Last void was early a.m. Voiding Methods Urinal Data Completed and Pending Completed studies during hospitalization [Text1]: CXR 03/25/2019: No acute pulmonary findings. Labs on day of discharge: Labs from last 24 hours 03/26/19 03/26/19 03/26/19 12:10 12:10 08:14 WBC RBC Hgb Hct MCV MCH MCHC RDW Plt Count MPV Immature Gran % Neutrophils % Lymphocytes % Monocytes % Eosinophils % Basophils % Absolute Neutrophils Absolute Lymphocytes Absolute Monocytes Absolute Eosinophils Absolute Basophils VBG pH 7.33 L 7.28 L VBG pCO2 34 33 L VBG pO2 38 34 VBG HCO3 18 L 16 L VBG Total CO2 16 L 14 L VBG O2 Saturation 78 71 VBG Base Excess -7.7 L -10.9 L Sodium 135 L Potassium 4.0 D Chloride 104 Carbon Dioxide 20.1 L Anion Gap 10.9 BUN 13 Creatinine 0.89 Estimated GFR/1.73 m2 >= 60.00 Glucose 206 H Calcium 8.2 L Magnesium 03/26/19 03/26/19 03/26/19 06:09 06:09 06:09 WBC 7.71 D RBC 4.81 Hgb 14.4 D Hct 40.2 D MCV 83.6 MCH 29.9 MCHC 35.8 RDW 12.5 Plt Count 324 D MPV 9.7 Immature Gran % 0.1 Neutrophils % 67.1 Lymphocytes % 23.1 Monocytes % 8.8 Eosinophils % 0.6 Basophils % 0.3 Absolute Neutrophils 5.17 Absolute Lymphocytes 1.78 Absolute Monocytes 0.68 Absolute Eosinophils 0.05 Absolute Basophils 0.02 VBG pH 7.32 L VBG pCO2 28 L VBG pO2 129 H VBG HCO3 14 L VBG Total CO2 13 L VBG O2 Saturation 99 H VBG Base Excess -11.9 L Sodium 138 Potassium 3.3 L Chloride 106 Carbon Dioxide 15.9 L Anion Gap 16.1 H BUN 15 Creatinine 1.05 Estimated GFR/1.73 m2 >= 60.00 Glucose 187 H Calcium 7.7 L Magnesium 2.0 03/26/19 03/25/19 03/25/19 00:25 20:22 15:20 WBC RBC Hgb Hct MCV MCH MCHC RDW Plt Count MPV Immature Gran % Neutrophils % Lymphocytes % Monocytes % Eosinophils % Basophils % Absolute Neutrophils Absolute Lymphocytes Absolute Monocytes Absolute Eosinophils Absolute Basophils VBG pH VBG pCO2 VBG pO2 VBG HCO3 VBG Total CO2 VBG O2 Saturation VBG Base Excess Sodium 135 L 139 138 Potassium 3.8 3.5 3.9 Chloride 102 107 106 Carbon Dioxide 13.0 L 18.4 L 16.4 L Anion Gap 20.0 H 13.6 H 15.6 H BUN 15 15 15 Creatinine 1.07 1.27 1.25 Estimated GFR/1.73 m2 >= 60.00 >= 60.00 >= 60.00 Glucose 235 H D 132 H 198 H Calcium 8.1 L 9.0 9.0 Magnesium 1.7 L 2.0 2.0 PFSH Medical History (Updated 03/25/19 @ 12:53 by Anuradha Huang MD) ADHD (attention deficit hyperactivity disorder) (Acute) Hepatitis C (Chronic) Right hand fracture (Acute) s/p pinning, [facility] Tobacco use (Acute) Type 1 diabetes mellitus (Acute) Social History (Updated 03/25/19 @ 06:42 by Clayton Wilson MD) Smoking/Tobacco Use Status: Current every day Alcohol Intake: former Year quit: 2019 Drug use: Occasionally Substance use type: marijuana Household members: family Additional Social history: Currently lives with his mother. Previously employed until the onset of type 1 diabetes. Completed 12th grade.
--- NOTE | 2019-03-26 17:15 | CMDISCH_ITS ---
- If Service Date Differs Date of service: 03/26/19 Time of Service: 17:15 LACE Index Scoring Tool - Questions: Length of Stay (in days): 1 Acuity (Admit via E.D.?): Yes Comorbidities: Diabetes w/o Complication E.D. Visits: 1 - Answers: Total Score: 6 Risk of Readmission: Low Risk Care Management Discharge Reason for Hospitalization: DKA Discharge Plan: Ted will be discharged home this afternoon. He will continue with outpatient diabetes education and a referral has been sent by to [facility] for an Endocrinology consult.Ted was informed about this today and encouraged to go for the appointment when contacted. He will also follow up with his PCP and discharge plan of care. Ted will transport via private vehicle with his mother. Patient/Family Education Needs: Continued education about diabetes management, discharge plan, limitations. Ask Me Three.
--- NOTE | 2019-03-27 07:34 | W.DIABETESNO ---
Date of service: 03/26/19 Time of Service: 07:34 Diabetes Note NOTE: Follow up visit with Ted as he prepares to be discharged with new instructions for mealtime insulin per Dr. Huang. He has been taking Reviewed diabetes food guide focused on identifying carbohydrate sources requiring insulin. Reviewed hypoglycemia symptoms and treatment. Reviewed needle disposal. Discussed impact of physical activity on blood sugar; sick day care focused on taking Lantus even when sick. PLAN: Per Dr. Huang, gave the following instruction sheet: MEALTIME INSULIN DOSING FOR TED When you eat carbohydrate foods (on left page) Take 8 units PLUS Blood Sugar Insulin: 200-250 1 251-300 2 301-350 3 351-400 4 MORNING LANTUS DOSING: Monday night: 10 units Monday mornin units mornin units EVERY MORNING after that: 30 units. Take blood sugar BEFORE each meal to see how much insulin you need to take. Take blood sugar before bed. Have a snack if less than 100. Call [phone] (Rosemarie) if you have a low blood sugar. Carry some kind of sugar with you at all times Time Spent in Nutritional Counseling and Treatment: 20 minutes face to face
== END 2019-03-26 16:30 | disposition home or self-care (01) | DRG 639 ==
LOC: ER 05:36 → ICU 05:57
PROVIDERS: Admitting Provider Family Medicine; Emergency Provider Emergency Medicine; Visit Provider Internal Medicine
DX: E10.10 Type 1 diabetes mellitus with ketoacidosis without coma (principal); R39.2 Extrarenal uremia; Z71.3 Dietary counseling and surveillance; K52.9 Noninfective gastroenteritis and colitis, unspecified; E86.0 Dehydration; D72.829 Elevated white blood cell count, unspecified; F17.210 Nicotine dependence, cigarettes, uncomplicated
CPT/HCPCS: 36415; 36416; 80048; 80053; 82805; 82962; 83690; 96361; 96374; 99223; 99239; 99291; 71045; 81003; 81015; 83036; 83735; 85025; 93005; 93010; J1644; J2405; J3475

== ENCOUNTER 2021-04-07 01:41 | Inpatient (IN) | payer MEDICAID, SELFPAY ==
[2021-04-07] VITALS (207 sets, daily range): BP systolic 95–179; BP diastolic 54–102; PULSE 81–145; RESP 11–34; TEMP 36.4–36.9; O2SAT 98–100
--- NOTE | 2021-04-07 01:15 | RT.EKG_ITS ---
APPROVED REPORT Exam: Resting ECG Reason for Exam: tachy Patient Location: I HR:126 bpm ECG Measurements Heart Rate 126 AXIS VA 127 P 86 QRSd 103 QRS 107 QT 323 T 52 QTc 468 Conclusion Sinus tachycardia PHysician: no stemi, peaking t waves
--- NOTE | 2021-04-07 01:40 | ED.GENADUL_ITS ---
Discharge Plan Disposition Patient Disposition: [facility] INPATIENT Condition: Improving Discharge Details Clinical Impression: DKA (diabetic ketoacidoses), Hyperglycemia, Acidosis, Vomiting, Dehydration, severe Primary Care Provider: Negro Zarate ED Provider: Good Nunez Home Meds and New Rx's Prescriptions: No Action nicotine 14 mg/24 hr Patch 24 Hour 14 mg transdermal DAILY PRN PRNQty: 30 0RF insulin lispro [Humalog KwikPen Insulin] 100 unit/mL Insulin Pen See Rx Instructions .ROUTE .COMPLEX Qty: 0 0RF Rx Instructions: Take 8 units of humalog with meals in addition to the sliding scale - 1 unit of humalog for every 50 points over 200. Call your PCP if your sugar is >400. Lantus Solostar U-100 Insulin 100 unit/mL (3 mL) Insulin Pen See Rx Instructions .ROUTE .COMPLEX Qty: 0 0RF Rx Instructions: take 10 units of lantus tonight before bed. Take 24 units of lantus tomorrow morning (03/27/2019). Take 30 units of lantus on am of 03/28/2019 and continue taking 30 units daily Medical Decision Making 25-year-old male with past medical history of type 1 diabetes, previous hepatitis C, ADHD, presents today for 2 days of vomiting and nausea. Symptoms notably worsened tonight. He has been taking his insulin at home but has been noticing high sugars. He has been unable keep anything down. He denies any diarrhea. He does believe that there is some blood in his vomitus tonight. He is not on any blood thinners. He has had episodes of DKA before, last admission was 1 year ago. He denies any chest pain or shortness of breath. He does admit to mild epigastric discomfort with the nausea. No previous abdominal surgeries. He denies any other sick contacts. No other complaints this time. He was given 4 mg of Zofran via EMS. This did slightly improve his nausea. EMS blood glucose was 490 on most recent check. Exam demonstrates profoundly dry mucous membranes, tachycardia, tachypnea. Mild epigastric tenderness and mild right upper quadrant tenderness but negative De Santiago sign. Symptoms at this time appear inconsistent with acute cholecystitis. Patient demonstrates clear signs and symptoms indicative of diabetic ketoacidosis. Screening EKG shows no evidence of U waves. Doubt pr ofound hypokalemia at this stage. We will start insulin infusion at 0.1 units/kg/h and give 2 L of normal saline for the DKA. We will give Famotidine and Protonix for suspected gastritis/mild GI bleed. Will monitor closely and reassess. Unfortunately there are currently no ICU beds available at [facility]. We will look for other ICU capable hospitals in the area as I suspect the patient will require admission and continued inpatient care. 2:12 AM Laboratory work-up has returned, pH is 6.98, bicarbonate 4, lactate is 2.0. Potassium is 5.3, anion gap is 36, creatinine elevated at 1.7 which is certainly higher than his normal baseline of 0.89. Liver function unremarkable, lipase normal, bilirubin normal. Urinalysis unsurprisingly shows notable ketones, mild proteinuria. Trace blood but no infection. We will continue to aggressively rehydrate as indicated, continue insulin infusion, perform q. hourly Accu-Cheks, and reevaluate electrolyte status in 1 hour. 4:21 AM Hourly repeat mental assessment demonstrates continuing improved mentation. His mental status was notably stable on arrival he is much more alert and attentive at this time. The patient's initial labs demonstrate a notable white count of 25, he had a lack of response on her initial hourly assessment with a repeat VBG and basic metabolic panel. Potassium slightly jessica to 5.6, and although he was feeling better and his heart rate was going down we did give calcium gluconate out of an abundance of precaution for cardiac stabilization. I anticipate his potassium will continue to decline instead of raise. Repeat VBG now shows a pH of 7.02 demonstrating improvement, bicarb remains at 4. Pending repeat potassium and anion gap. Renal function appears to be improving. Lipase normal. We will continue to monitor closely. The patient glucose did drop to 330, we will decrease the insulin drip per the protocol down to 4 units/h. We will reassess after repeat labs return for potential need for glucose s upplementation if indicated. 4:50 AM Patient continues to look even better. Respirations have decreased to a normal rate, heart rate down to the low 120s. Blood pressure remained stable. Repeat labs demonstrate improving pH, potassium is remaining stable, anion gap is starting to close slowly at 27. Repeat blood sugar is 290, we will continue insulin, and replace his fluids now with D5W at twice normal maintenance fluid levels which will be 200 mL/h. He has received 4 L of normal saline total which have demonstrated good improvement. Repeat mental status continued to demonstrate excellent mentation, no signs of obtundation or altered mental status whatsoever. Patient is actually subjectively feeling much much better on reassessment. 7:53 AM Discussed the case with the hospitalist Dr. Oliveros, he agrees with the assessment and plan for admission. Patient will be admitted to the ICU. pH notably improving down to 7.19, bicarb going up to 9. Patient still feeling much better subjectively. I have extensively reviewed the treatment plan with the patient. I have addressed all patient concerns at this time. I have also discussed the plan with the admitting physician and they agree with the current assessment and plan and have agreed to assume responsibility for the patient. All parties demonstrate verbal understanding and agreement with our assessment and plan at this time. The documentation in this chart was dictated using [employer] dictation software. Please excuse any dictation errors. EKG 1: 33 Rate 126, intervals normal, sinus tachycardia, no significant ST elevation or depression. No U waves. T waves do appear slightly peaked. Inverted T waves present in V1. No STEMI. HPI General Date/Time Provider Initiated Documentation: 04/07/21 02:14 . HPI Narrative: 25-year-old male with past medical history of type 1 diabetes, previous hepatitis C, ADHD, presents today for 2 days of vomiting and nausea. Symptoms notably worsened tonight. He has been taking his insulin at home but has been noticing high sugars. He has been unable keep anything down. He denies any diarrhea. He does believe that there is some blood in his vomitus tonight. He is not on any blood thinners. He has had episodes of DKA before, last admission was 1 year ago. He denies any chest pain or shortness of breath. He does admit to mild epigastric discomfort with the nausea. No previous abdominal surgeries. He denies any other sick contacts. No other complaints this time. He was given 4 mg of Zofran via EMS. This did slightly improve his nausea. EMS blood glucose was 490 on most recent check. Related Data Home Medications Medication Instructions Recorded Confirmed insulin glargine 100 unit/mL (3 See Rx Instructions .ROUTE 03/26/19 04/07/21 mL) subcutaneous pen (Lantus .COMPLEX #0 ml Solostar U-100 Insulin) insulin lispro 100 unit/mL See Rx Instructions .ROUTE 03/26/19 04/07/21 subcutaneous pen (Humalog KwikPen .COMPLEX #0 ml (U-100) Insulin) nicotine 14 mg/24 hr daily 14 mg TRANSDERMAL DAILY PRN PRN 03/26/19 transdermal patch #30 ea Previous Rx's Medication Instructions Recorded insulin glargine 100 unit/mL (3 See Rx Instructions .ROUTE 03/26/19 mL) subcutaneous pen (Lantus .COMPLEX #0 ml Solostar U-100 Insulin) insulin lispro 100 unit/mL See Rx Instructions .ROUTE 03/26/19 subcutaneous pen (Humalog KwikPen .COMPLEX #0 ml (U-100) Insulin) nicotine 14 mg/24 hr daily 14 mg TRANSDERMAL DAILY PRN PRN 03/26/19 transdermal patch #30 ea Allergies Allergy/AdvReac Type Severity Reaction Status Date / Time coconut oil Allergy Severe ANAPHYLAXIS Unverified 04/07/21 02:08 AND HIVES General Stated Complaint: Diabetes MADGALENA: 2 Review of Systems All systems reviewed & are unremarkable except as noted in HPI and below PFSH All Active Problems (Updated 04/07/21 @ 07:20 by Good Nunez DO) Hyperglycemia (Acute) Acidosis (Acute) Vomiting (Acute) Dehydration, severe (Acute) DVT prophylaxis (Acute) Discharge planning issues (Acute) Proteinuria due to type 1 diabetes mellitus (Acute) Prerenal acute renal failure (Acute) Leucocytosis (Acute) Dehydration (Acute) Type 1 diabetes mellitus (Acute) DKA (diabetic ketoacidoses) (Acute) Medical History ADHD (attention deficit hyperactivity disorder) Hepatitis C [facility] Social History Smoking/Tobacco Use Status: Current every day Smoking risk assessment performed?: Yes Alcohol Intake: former Year quit: 2019 Drug use: Occasionally Substance use type: marijuana Household members: family Do you feel safe at home: Yes Do you feel safe in your relationship?: Yes Additional Social history: Currently lives with his mother. Previously employed until the onset of type 1 diabetes. Completed 12th grade. Exam Narrative Exam Narrative: 1.Const: Well-nourished, Well-developed, appearing stated age 2.Eyes: PERRL, no conjunctival injection, and symmetrical lids. 3.ENT: Atraumatic external nose and ears. Profoundly dryMM. Neck: Symmetric, trachea midline, No thyromegaly. 4.CVS: +S1/S2, No murmurs or gallops. Peripheral pulses 2+ and equal in all extremities. Brisk capillary refill in all extremities. 5.RESP: Unlabored respiratory effort. Clear to auscultation bilaterally. No wheezes rales or rhonchi 6.GI: Soft, nondistended, mild epigastric tenderness, mild right upper quadrant tenderness, but negative De Santiago sign. No pain at McBurney's point. Mild left upper quadrant achiness. 7.MSK: Normocephalic/Atraumatic, Extremities w/o deformity or ttp No cyanosis or clubbing, Normal movement of all extremities 8.Skin: Warm, Dry. No rashes or lesions. 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 Sensation grossly intact, no focal neurologic deficits. 10.Psych: (AAO) x3. Appropriate mood and affect Course Vital Signs Vital signs: Vital Signs Temperature 36.5 C 04/07/21 01:23 Pulse 138 H 04/07/21 01:23 Respiratory Rate 26 H 04/07/21 01:23 Blood Pressure 179/102 H 04/07/21 01:23 Pulse Oximetry 99 04/07/21 01:23 Temperature 36.5 C 04/07/21 01:23 Temperature Source Temporal Artery Scan 04/07/21 01:23 Pulse 138 H 04/07/21 01:23 Respiratory Rate 26 H 04/07/21 01:23 Blood Pressure 179/102 H 04/07/21 01:23 Blood Pressure Position Supine 04/07/21 01:23 Pulse Oximetry 99 04/07/21 01:23 Oxygen Delivery Method Room Air 04/07/21 01:23 Oxygen Flow Rate 0 04/07/21 01:23 Pain Level 7 04/07/21 01:23 Critical Care Time Critical Care Time Critical Care Time: Yes Total Critical Care Time: 110 Attestation: Upon my evaluation, this patient had a high probability of imminent or life- threatening deterioration, which required my direct attention, intervention, and personal management. I have personally provided 110 minutes of critical care time exclusive of time spent on separately billable procedures. Time includes review of laboratory data, radiology results, discussion with consultants, and monitoring for potential decompensation. Interventions were performed as documented.
[2021-04-07 01:45] LABS: HCO3 (Venous) 4 mmol/L (23-28); O2 Sat (Venous) 88 %; TCO2 (Venous) 4 mmol/L (24-29); pO2 (Venous) 68 mmHg
[2021-04-07] MEDS: FAMOTIDINE 20 MG in Normal Saline 100 ML 400 MG IVPB (01:47)
[2021-04-07 01:48] LABS: pCO2 (Venous) 19 mmHg (41-51); pH (Venous) 6.98 (7.31-7.41)
[2021-04-07] MEDS: Pantoprazole 40 MG VIAL IVP (01:48)
[2021-04-07] MEDS: Normal Saline 1,000 ML 1000 ML IV ×4 (01:48→04:00)
[2021-04-07] MEDS: Ondansetron 4 MG/2 ML VIAL IVP (01:48)
[2021-04-07 01:52] LABS: Abs Immature Grans 0.46 10^3/uL (0.0-0.06); Absolute Monocyte Count 0.97 10^3/uL (0.1-0.8); Basophils % 0.7; Eosinophils % 0.1; HCT 52.4 % (40.0-50.0); HGB 16.9 g/dL (13.5-17.5); Immature Grans % 1.8; Lymphocytes % 11.6; MCH 30.3 pg (27.0-33.0); MCHC 32.3 % (32.0-36.0); MCV 93.9 fL (80-95); Monocytes % 3.8; Nucleated RBC 0 %; Platelet Count 573 10^3/uL (130-400); RBC 5.58 10^6/uL (4.36-5.78); RDW 11.9 % (11.8-14.1); RDW-SD 41.5 fL
[2021-04-07 01:54] LABS: Bilirubin Negative (Negative); Blood Trace-intact (Negative); Clarity Clear (Clear); Glucose 500 mg/dL (Negative); Ketones >=160 mg/dL (Negative); Leukocyte Esterase Negative (Negative); Nitrite Negative (Negative); Specific Gravity >= 1.030 (1.005-1.025); Urobilinogen 0.2 EU/dL (Up TO 0.2); pH 5.5 (5-8)
[2021-04-07 01:54] LABS: Absolute Basophil Count 0.18 10^3/uL (0.0-0.2); Absolute Eosinophil Count 0.03 10^3/uL (0.0-0.7); Absolute Lymphocyte Count 2.96 10^3/uL (1.2-3.4); Absolute Neutrophil Count 20.91 10^3/uL (1.2-6.7)
[2021-04-07 01:59] LABS: Diff Comment Agrees w/ Instrument; RBC Morphology Normal
[2021-04-07] MEDS: INSULIN REGULAR IN 0.9 % NACL 100 UNIT/100 ML BAG 6 UNIT IV (01:59)
[2021-04-07 02:03] LABS: Bacteria Rare HPF (Negative); C & S Indicated? No; Casts Negative LPF (Negative); Crystals Negative HPF (Negative); Epithelial Cells Negative HPF (Negative); Mucus Negative (Negative); RBC 0-2 HPF (0-2); WBC 0-2 HPF (0-5)
[2021-04-07 02:09] LABS: ALT 12 U/L (16-63); AST 14 U/L (15-37); Albumin 4.5 g/dL (3.4-5.0); Alkaline Phosphatase 113 U/L (46-116); Anion Gap 36.00001 mmol/L (3-11); BUN 16 mg/dL (7-18); Bilirubin, Total 0.6 mg/dL (0.2-1.0); CREATININE 1.7 mg/dL (0.70-1.30); Calcium 9.3 mg/dL (8.5-10.1); Chloride 97 mmol/L (98-107); Estimated GFR 49.76 (mL/min/1.73m2); Lipase 33 U/L (73-393); Potassium 5.3 mmol/L (3.5-5.1); Sodium 138 mmol/L (136-145); Total Protein 8.8 g/dL (6.4-8.2)
[2021-04-07 02:10] LABS: CO2 < 5.0 mmol/L (21.0-32.0); Glucose 623 mg/dL (74-106)
[2021-04-07 03:08] LABS: HCO3 (Venous) 4 mmol/L (23-28); O2 Sat (Venous) 82 %; TCO2 (Venous) 4 mmol/L (24-29); pO2 (Venous) 58 mmHg
[2021-04-07 03:11] LABS: pCO2 (Venous) 18 mmHg (41-51); pH (Venous) 6.94 (7.31-7.41)
[2021-04-07 03:23] LABS: BUN 15 mg/dL (7-18); CREATININE 1.4 mg/dL (0.70-1.30); Calcium 7.6 mg/dL (8.5-10.1); Chloride 107 mmol/L (98-107); Glucose 435 mg/dL (74-106); Potassium 5.6 mmol/L (3.5-5.1); Sodium 142 mmol/L (136-145)
[2021-04-07 03:24] LABS: Anion Gap 30.00001 mmol/L (3-11); CO2 < 5.0 mmol/L (21.0-32.0)
[2021-04-07] MEDS: Calcium Gluconate 4.65 MEQ/10 ML VIAL 4.65 MG IVP (03:57)
[2021-04-07] MEDS: Normal Saline 100 ML (04:00)
[2021-04-07 04:18] LABS: HCO3 (Venous) 4 mmol/L (23-28); O2 Sat (Venous) 87 %; TCO2 (Venous) 4 mmol/L (24-29); pO2 (Venous) 59 mmHg
[2021-04-07 04:20] LABS: pCO2 (Venous) 17 mmHg (41-51); pH (Venous) 7.02 (7.31-7.41)
[2021-04-07 04:31] LABS: BUN 14 mg/dL (7-18); CREATININE 1.3 mg/dL (0.70-1.30); Calcium 7.9 mg/dL (8.5-10.1); Chloride 112 mmol/L (98-107); Glucose 310 mg/dL (74-106); Potassium 5.6 mmol/L (3.5-5.1); Sodium 144 mmol/L (136-145)
[2021-04-07 04:33] LABS: Anion Gap 27.00001 mmol/L (3-11)
[2021-04-07 04:34] LABS: CO2 < 5.0 mmol/L (21.0-32.0)
[2021-04-07] MEDS: DEXTROSE 5%-WATER 1,000 ML 200 ML IV (04:54)
[2021-04-07 06:12] LABS: HCO3 (Venous) 6 mmol/L (23-28); O2 Sat (Venous) 97 %; TCO2 (Venous) 5 mmol/L (24-29); pO2 (Venous) 93 mmHg
[2021-04-07 06:15] LABS: pCO2 (Venous) 17 mmHg (41-51); pH (Venous) 7.14 (7.31-7.41)
[2021-04-07 06:21] LABS: Anion Gap 26.8 mmol/L (3-11); BUN 11 mg/dL (7-18); CO2 6.2 mmol/L (21.0-32.0); CREATININE 1.3 mg/dL (0.70-1.30); Calcium 7.8 mg/dL (8.5-10.1); Chloride 110 mmol/L (98-107); Glucose 269 mg/dL (74-106); Potassium 4.6 mmol/L (3.5-5.1); Sodium 143 mmol/L (136-145)
[2021-04-07 07:48] LABS: HCO3 (Venous) 9 mmol/L (23-28); O2 Sat (Venous) 91 %; TCO2 (Venous) 8 mmol/L (24-29); pCO2 (Venous) 24 mmHg (41-51); pO2 (Venous) 57 mmHg
[2021-04-07 07:50] LABS: Source Nasal/Nares
[2021-04-07 07:51] LABS: pH (Venous) 7.19 (7.31-7.41)
[2021-04-07 08:07] LABS: Anion Gap 22.4 mmol/L (3-11); BUN 10 mg/dL (7-18); CO2 9.6 mmol/L (21.0-32.0); CREATININE 1.3 mg/dL (0.70-1.30); Calcium 8.3 mg/dL (8.5-10.1); Chloride 111 mmol/L (98-107); Glucose 245 mg/dL (74-106); Potassium 3.9 mmol/L (3.5-5.1); Sodium 143 mmol/L (136-145)
[2021-04-07] MEDS: POTASSIUM CHLORIDE 20 MEQ/100 ML BAG 50 MEQ IVPB ×2 (08:23→22:10)
[2021-04-07 08:39] LABS: COVID-19 PCR Negative (Negative)
[2021-04-07] MEDS: DEXTROSE 5%-0.45% SALINE 1,000 ML 150 ML IV ×2 (09:54→17:59)
[2021-04-07 09:57] LABS: BE (Venous) -15 mmol/L (-2-3); HCO3 (Venous) 13 mmol/L (23-28); O2 Sat (Venous) 94 %; TCO2 (Venous) 11 mmol/L (24-29); pCO2 (Venous) 29 mmHg (41-51); pH (Venous) 7.25 (7.31-7.41); pO2 (Venous) 63 mmHg
[2021-04-07 10:09] LABS: Anion Gap 18.9 mmol/L (3-11); BUN 11 mg/dL (7-18); CO2 13.1 mmol/L (21.0-32.0); CREATININE 1.3 mg/dL (0.70-1.30); Calcium 8.6 mg/dL (8.5-10.1); Chloride 112 mmol/L (98-107); Glucose 125 mg/dL (74-106); Potassium 3.9 mmol/L (3.5-5.1); Sodium 144 mmol/L (136-145)
[2021-04-07 13:38] LABS: Anion Gap 15.8 mmol/L (3-11); BUN 11 mg/dL (7-18); CO2 16.2 mmol/L (21.0-32.0); CREATININE 1.3 mg/dL (0.70-1.30); Calcium 8.2 mg/dL (8.5-10.1); Chloride 111 mmol/L (98-107); Glucose 155 mg/dL (74-106); Potassium 3.9 mmol/L (3.5-5.1); Sodium 143 mmol/L (136-145)
--- NOTE | 2021-04-07 14:17 | HPE_ITS ---
Date of service: 04/07/21 Time of Service: 14:17 Assessment and Plan Assessment and plan (1) DKA (diabetic ketoacidoses): Status: Acute Assessment and plan: Insulin drip. Anion gap decreasing steadily. He may eat. D/C insulin drip when gap closes and begin basal/bolus insulin. Monitor K. (2) Tobacco use: Assessment and plan: NIcotine patch. (3) ADHD (attention deficit hyperactivity disorder): Assessment and plan: Not currently on any medications for ADHD. History of Present Illness History of Present Illness Chief Complaint: Nausea and vomiting Narrative: This is a 25 yo male with a PMH of DM1 with previous admissions for DKA, ADHD, previous hepatitis C. He presented with a 2 day history of nausea and vomiting. He has been taking insulin but glucose readings have been elevated. No abd pain, diarrhea, fever/chills. He noted some small amount of blood in his vomitus. EMS administered Zofran 4mg. EMS blood glucose reading of 490. He presented with tachycardia, tachypnea. Lab findings: WBC count 25.5. VBG ph 6.98, lactate 6.0. K 5.3, 5.6. Anion gap of 36. Creatinine 1.7. Lipase and bilirubin normal. LFTs unremarkable. Aggressive IV hydration administered with 4L NS. Insulin drip initiated. His pH, anion gap and glucose readings began to improve. Admitted to the ICU. Review of Systems All systems reviewed & are unremarkable except as noted in HPI and below PFSH All Active Problems Hyperglycemia (Acute) Acidosis (Acute) Vomiting (Acute) Dehydration, severe (Acute) DVT prophylaxis (Acute) Discharge planning issues (Acute) Proteinuria due to type 1 diabetes mellitus (Acute) Prerenal acute renal failure (Acute) Leucocytosis (Acute) Dehydration (Acute) Type 1 diabetes mellitus (Acute) DKA (diabetic ketoacidoses) (Acute) Medical History ADHD (attention deficit hyperactivity disorder) Hepatitis C Right hand fracture s/p [facility] Tobacco use Social History Smoking/Tobacco Use Status: Current every day Smoking risk assessment performed?: Yes Alcohol Intake: former Year quit: 2019 Drug use: Occasionally Substance use type: marijuana Household members: family Do you feel safe at home: Yes Do you feel safe in your relationship?: Yes Additional Social history: Currently lives with his mother. Previously employed until the onset of type 1 diabetes. Completed 12th grade. Meds Allergies and Home Medications Allergies Allergy/AdvReac Type Severity Reaction Status Date / Time coconut oil Allergy Severe ANAPHYLAXIS Unverified 04/07/21 02:08 AND HIVES Home Medications Medication Instructions Recorded Confirmed Type insulin glargine 100 unit/mL (3 See Rx Instructions .ROUTE 03/26/19 04/07/21 Rx mL) subcutaneous pen (Lantus .COMPLEX #0 ml Solostar U-100 Insulin) insulin lispro 100 unit/mL See Rx Instructions .ROUTE 03/26/19 04/07/21 Rx subcutaneous pen (Humalog KwikPen .COMPLEX #0 ml (U-100) Insulin) nicotine 14 mg/24 hr daily 14 mg TRANSDERMAL DAILY PRN PRN 03/26/19 Rx transdermal patch #30 ea Exam Narrative Exam Narrative: Sleeping. Readily wakens to verbal stimuli Const General: cooperative, no acute distress, ill appearing and lethargic Nutritional Appearance: thin Orientation: oriented x3 HENMT Head: normocephalic and atraumatic Eyes General: appearance normal, both eyes and all related structures Sclera: sclerae normal Neck Neck: full ROM and JVD Resp Effort & Inspection: normal respiratory effort Auscultation: clear to auscultation bilaterally Cardio Rate: regular rate Rhythm: regular rhythm Heart Sounds: S1 normal and S2 normal GI Palpation: soft and tender (mild/diffuse) Skin General skin exam: no rashes or lesions noted Neuro General: moves all extremities Cranial Nerves: facial strength normal Cognition: normal cognition Speech: speech normal Extrem General: no pedal edema and no calf tenderness Results Labs Result diagrams: 04/07/21 01:30 04/07/21 13:17 Labs: Laboratory Results - last 24 hr 04/07/21 04/07/21 04/07/21 01:30 01:30 01:30 WBC 25.50 H* RBC 5.58 Hgb 16.9 Hct 52.4 H MCV 93.9 MCH 30.3 MCHC 32.3 RDW 11.9 Plt Count 573 H MPV 10.0 Immature Gran % 1.8 Neutrophils % 82.0 Lymphocytes % 11.6 Monocytes % 3.8 Eosinophils % 0.1 Basophils % 0.7 Nucleated RBC % 0 Absolute Neutrophils 20.91 H Absolute Lymphocytes 2.96 Absolute Monocytes 0.97 H Absolute Eosinophils 0.03 Absolute Basophils 0.18 RBC Morphology Normal VBG pH VBG pCO2 VBG pO2 VBG HCO3 VBG Total CO2 VBG O2 Saturation VBG Base Excess VBG Lactate 6.0 H* Sodium 138 Potassium 5.3 H Chloride 97 L Carbon Dioxide < 5.0 L* Anion Gap 36.66716 H BUN 16 Creatinine 1.7 H Estimated GFR/1.73 m2 49.76 Glucose 623 H* Calcium 9.3 Magnesium Total Bilirubin 0.6 AST 14 L ALT 12 L Alkaline Phosphatase 113 Total Protein 8.8 H Albumin 4.5 Lipase 33 Urine Color Urine Clarity Urine pH Ur Specific [place] Urine Protein Urine Ketones Urine Blood Urine Nitrite Urine Bilirubin Urine Urobilinogen Ur Leukocyte Esterase Urine RBC Urine WBC Ur Epithelial Cells Urine Crystals Urine Bacteria Urine Casts Urine Mucus Ur Culture Indicated? Urine Glucose COVID-19 Source SARS-CoV-2 (PCR) 04/07/21 04/07/21 04/07/21 01:30 01:30 01:35 WBC RBC Hgb Hct MCV MCH MCHC RDW Plt Count MPV Immature Gran % Neutrophils % Lymphocytes % Monocytes % Eosinophils % Basophils % Nucleated RBC % Absolute Neutrophils Absolute Lymphocytes Absolute Monocytes Absolute Eosinophils Absolute Basophils RBC Morphology VBG pH 6.98 L* VBG pCO2 19 L* VBG pO2 68 VBG HCO3 4 L VBG Total CO2 4 L VBG O2 Saturation 88 VBG Base Excess < -15 L VBG Lactate Sodium Potassium Chloride Carbon Dioxide Anion Gap BUN Creatinine Estimated GFR/1.73 m2 Glucose Calcium Magnesium 2.0 Total Bilirubin AST ALT Alkaline Phosphatase Total Protein Albumin Lipase Urine Color Yellow Urine Clarity Clear Urine pH 5.5 Ur Specific [place] >= 1.030 H Urine Protein 100 H Urine Ketones >=160 H Urine Blood Trace-intact H Urine Nitrite Negative Urine Bilirubin Negative Urine Urobilinogen 0.2 Ur Leukocyte Esterase Negative Urine RBC 0-2 Urine WBC 0-2 Ur Epithelial Cells Negative Urine Crystals Negative Urine Bacteria Rare Urine Casts Negative Urine Mucus Negative Ur Culture Indicated? No Urine Glucose 500 H COVID-19 Source SARS-CoV-2 (PCR) 04/07/21 04/07/21 04/07/21 03:04 03:04 04:14 WBC RBC Hgb Hct MCV MCH MCHC RDW Plt Count MPV Immature Gran % Neutrophils % Lymphocytes % Monocytes % Eosinophils % Basophils % Nucleated RBC % Absolute Neutrophils Absolute Lymphocytes Absolute Monocytes Absolute Eosinophils Absolute Basophils RBC Morphology VBG pH 6.94 L* VBG pCO2 18 L* VBG pO2 58 VBG HCO3 4 L VBG Total CO2 4 L VBG O2 Saturation 82 VBG Base Excess < -15 L VBG Lactate Sodium 142 144 Potassium 5.6 H 5.6 H Chloride 107 112 H Carbon Dioxide < 5.0 L* < 5.0 L* Anion Gap 30.82315 H 27.11934 H BUN 15 14 Creatinine 1.4 H 1.3 Estimated GFR/1.73 m2 >= 60.00 >= 60.00 Glucose 435 H D 310 H D Calcium 7.6 L 7.9 L Magnesium Total Bilirubin AST ALT Alkaline Phosphatase Total Protein Albumin Lipase Urine Color Urine Clarity Urine pH Ur Specific [place] Urine Protein Urine Ketones Urine Blood Urine Nitrite Urine Bilirubin Urine Urobilinogen Ur Leukocyte Esterase Urine RBC Urine WBC Ur Epithelial Cells Urine Crystals Urine Bacteria Urine Casts Urine Mucus Ur Culture Indicated? Urine Glucose COVID-19 Source SARS-CoV-2 (PCR) 04/07/21 04/07/21 04/07/21 04:14 06:07 06:07 WBC RBC Hgb Hct MCV MCH MCHC RDW Plt Count MPV Immature Gran % Neutrophils % Lymphocytes % Monocytes % Eosinophils % Basophils % Nucleated RBC % Absolute Neutrophils Absolute Lymphocytes Absolute Monocytes Absolute Eosinophils Absolute Basophils RBC Morphology VBG pH 7.02 L* 7.14 L* VBG pCO2 17 L* 17 L* VBG pO2 59 93 VBG HCO3 4 L 6 L VBG Total CO2 4 L 5 L VBG O2 Saturation 87 97 VBG Base Excess < -15 L < -15 L VBG Lactate Sodium 143 Potassium 4.6 Chloride 110 H Carbon Dioxide 6.2 L Anion Gap 26.8 H BUN 11 Creatinine 1.3 Estimated GFR/1.73 m2 >= 60.00 Glucose 269 H Calcium 7.8 L Magnesium Total Bilirubin AST ALT Alkaline Phosphatase Total Protein Albumin Lipase Urine Color Urine Clarity Urine pH Ur Specific [place] Urine Protein Urine Ketones Urine Blood Urine Nitrite Urine Bilirubin Urine Urobilinogen Ur Leukocyte Esterase Urine RBC Urine WBC Ur Epithelial Cells Urine Crystals Urine Bacteria Urine Casts Urine Mucus Ur Culture Indicated? Urine Glucose COVID-19 Source SARS-CoV-2 (PCR) 04/07/21 04/07/21 04/07/21 07:30 07:30 07:30 WBC RBC Hgb Hct MCV MCH MCHC RDW Plt Count MPV Immature Gran % Neutrophils % Lymphocytes % Monocytes % Eosinophils % Basophils % Nucleated RBC % Absolute Neutrophils Absolute Lymphocytes Absolute Monocytes Absolute Eosinophils Absolute Basophils RBC Morphology VBG pH 7.19 L* VBG pCO2 24 L VBG pO2 57 VBG HCO3 9 L VBG Total CO2 8 L VBG O2 Saturation 91 VBG Base Excess < -15 L VBG Lactate Sodium 143 Potassium 3.9 Chloride 111 H Carbon Dioxide 9.6 L Anion Gap 22.4 H BUN 10 Creatinine 1.3 Estimated GFR/1.73 m2 >= 60.00 Glucose 245 H Calcium 8.3 L Magnesium Total Bilirubin AST ALT Alkaline Phosphatase Total Protein Albumin Lipase Urine Color Urine Clarity Urine pH Ur Specific [place] Urine Protein Urine Ketones Urine Blood Urine Nitrite Urine Bilirubin Urine Urobilinogen Ur Leukocyte Esterase Urine RBC Urine WBC Ur Epithelial Cells Urine Crystals Urine Bacteria Urine Casts Urine Mucus Ur Culture Indicated? Urine Glucose COVID-19 Source Nasal/Nares SARS-CoV-2 (PCR) Negative 04/07/21 04/07/21 04/07/21 09:53 09:53 13:17 WBC RBC Hgb Hct MCV MCH MCHC RDW Plt Count MPV Immature Gran % Neutrophils % Lymphocytes % Monocytes % Eosinophils % Basophils % Nucleated RBC % Absolute Neutrophils Absolute Lymphocytes Absolute Monocytes Absolute Eosinophils Absolute Basophils RBC Morphology VBG pH 7.25 L VBG pCO2 29 L VBG pO2 63 VBG HCO3 13 L VBG Total CO2 11 L VBG O2 Saturation 94 VBG Base Excess -15 L VBG Lactate Sodium 144 143 Potassium 3.9 3.9 Chloride 112 H 111 H Carbon Dioxide 13.1 L 16.2 L Anion Gap 18.9 H 15.8 H BUN 11 11 Creatinine 1.3 1.3 Estimated GFR/1.73 m2 >= 60.00 >= 60.00 Glucose 125 H D 155 H Calcium 8.6 8.2 L Magnesium Total Bilirubin AST ALT Alkaline Phosphatase Total Protein Albumin Lipase Urine Color Urine Clarity Urine pH Ur Specific [place] Urine Protein Urine Ketones Urine Blood Urine Nitrite Urine Bilirubin Urine Urobilinogen Ur Leukocyte Esterase Urine RBC Urine WBC Ur Epithelial Cells Urine Crystals Urine Bacteria Urine Casts Urine Mucus Ur Culture Indicated? Urine Glucose COVID-19 Source SARS-CoV-2 (PCR) Last Vital Signs Temp 36.4 C L 04/07/21 12:54 Pulse 91 H 04/07/21 11:49 Resp 16 04/07/21 11:49 BP 112/69 04/07/21 11:49 Pulse Ox 100 04/07/21 11:49
[2021-04-07 14:56] LABS: Lab Add On Test DONE
[2021-04-07 15:13] LABS: Hemoglobin A1C 10.2 % (<5.7)
[2021-04-07] MEDS: Enoxaparin 40 MG/0.4 ML SYR SC (16:28)
[2021-04-07] MEDS: Mylanta Suspension 30 ML CUP PO (16:28)
[2021-04-07 16:49] LABS: Anion Gap 16.2 mmol/L (3-11); BUN 10 mg/dL (7-18); CO2 16.8 mmol/L (21.0-32.0); CREATININE 1.2 mg/dL (0.70-1.30); Calcium 8.9 mg/dL (8.5-10.1); Chloride 112 mmol/L (98-107); Glucose 139 mg/dL (74-106); Potassium 3.6 mmol/L (3.5-5.1); Sodium 145 mmol/L (136-145)
[2021-04-07 20:46] LABS: BUN 10 mg/dL (7-18); Calcium 8.2 mg/dL (8.5-10.1); Glucose 190 mg/dL (74-106)
[2021-04-07 20:47] LABS: Chloride 108 mmol/L (98-107); Sodium 141 mmol/L (136-145)
[2021-04-07] MEDS: Potassium Chloride 10 MEQ CAPCR 40 MEQ PO (22:10)
--- NOTE | 2021-04-07 23:25 | NUR.NOTE ---
2149-spoke with DR. Leahy about lab draw of k of 3. fingerstick of 170 and anion gap that has increased to 17. new orders given. insulin gtt stopped at 2200 hours. ivf changed. pt given 40meq of potassium and potassium bolus startedNursing Note:
[2021-04-08] VITALS (24 sets, daily range): BP systolic 117–127; BP diastolic 62–84; PULSE 86–132; RESP 13–32; TEMP 36.4–37; O2SAT 97–100
[2021-04-08] MEDS: INSULIN REGULAR IN 0.9 % NACL 100 UNIT/100 ML BAG 6 UNIT IV (00:57)
[2021-04-08] MEDS: Nicotine 14 MG/24 HR PATCH TD (01:03)
[2021-04-08] MEDS: POTASSIUM CHLORIDE 20 MEQ/100 ML BAG 10 MEQ IVPB (01:06)
[2021-04-08] MEDS: Metoclopramide 10 MG/2 ML VIAL IVP (01:45)
[2021-04-08 01:47] LABS: Anion Gap 19.2 mmol/L (3-11); BUN 7 mg/dL (7-18); CO2 14.8 mmol/L (21.0-32.0); CREATININE 1.1 mg/dL (0.70-1.30); Calcium 8.2 mg/dL (8.5-10.1); Chloride 101 mmol/L (98-107); Glucose 292 mg/dL (74-106); Potassium 3.1 mmol/L (3.5-5.1); Sodium 135 mmol/L (136-145)
[2021-04-08] MEDS: Ondansetron 4 MG/2 ML VIAL IVP (02:51)
[2021-04-08 06:48] LABS: Abs Immature Grans 0.02 10^3/uL (0.0-0.06); Absolute Basophil Count 0.03 10^3/uL (0.0-0.2); Absolute Eosinophil Count 0.02 10^3/uL (0.0-0.7); Absolute Lymphocyte Count 1.61 10^3/uL (1.2-3.4); Absolute Monocyte Count 0.69 10^3/uL (0.1-0.8); Basophils % 0.3; Eosinophils % 0.2; HCT 39.2 % (40.0-50.0); HGB 13.5 g/dL (13.5-17.5); Immature Grans % 0.2; MCH 29.7 pg (27.0-33.0); MCHC 34.4 % (32.0-36.0); MCV 86.2 fL (80-95); MPV 9.4 fL (8.0-11.0); Monocytes % 7.3; Nucleated RBC 0 %; Platelet Count 330 10^3/uL (130-400); RBC 4.55 10^6/uL (4.36-5.78); RDW 11.9 % (11.8-14.1); RDW-SD 38.2 fL; WBC 9.47 10^3/uL (4.4-10.8)
[2021-04-08] MEDS: POTASSIUM CHLORIDE 20 MEQ/100 ML BAG 50 MEQ IVPB ×2 (06:57→09:35)
[2021-04-08 07:12] LABS: Anion Gap 11.4 mmol/L (3-11); BUN 6 mg/dL (7-18); CO2 20.6 mmol/L (21.0-32.0); CREATININE 0.8 mg/dL (0.70-1.30); Calcium 8.3 mg/dL (8.5-10.1); Chloride 109 mmol/L (98-107); Glucose 120 mg/dL (74-106); Magnesium 1.9 mg/dL (1.8-2.4); Potassium 3.3 mmol/L (3.5-5.1); Sodium 141 mmol/L (136-145)
--- NOTE | 2021-04-08 08:14 | PDOC.CMIN ---
- If Service Date Differs Date of service: 04/08/21 Time of Service: 08:14 Care Management Initial Assess REASON FOR HOSPITALIZATION:: DKA PAST MEDICAL HISTORY/PAST SURGICAL HISTORY:: Medical History. ADHD (attention deficit hyperactivity disorder). Hepatitis C. Right hand fracture. s/p pinning, [facility]. Tobacco use PREVIOUS FUNCTIONAL STATUS/SOCIAL/FAMILY SUPPORTS:: Resides with his mother resides in [place] and is independent at baseline. CURRENT FUNCTIONAL STATUS:: Up independently, tolerating diet, remains pleasant in interaction. ADVANCE DIRECTIVES:: None on file. Has patient been provided with info about the portal/API?: Yes CODE STATUS:: Full Code INSURANCE COVERAGE / FINANCIAL ISSUES:: Medicaid CURRENT HOME/COMMUNITY SERVICES/EQUIPMENT:: None, currently. PRIMARY CARE PHYSICIAN:: Negro Zarate POTENTIAL DISCHARGE NEEDS:: Follow up appointments. PATIENT/FAMILY EDUCATION NEEDS:: Review discharge instructions, discuss Ask Me Three. ANTICIPATED BARRIERS TO DISCHARGE:: None anticipated at this time. TRANSPORTATION:: Via private vehicle with his . PLAN:: Ted continues to be monitored in the ICU for DKA, CM continues to follow. CM faxed [facility] referral to ensure Ted has additional support connecting with outpatient DM resources and transport to appointments. He will follow up with his PCP, [facility] endocrinology and transport home via private vehicle with his mother.
[2021-04-08] MEDS: Potassium Chloride 10 MEQ CAPCR 20 MEQ PO ×3 (09:41→15:25)
[2021-04-08 09:49] LABS: BUN 5 mg/dL (7-18); CREATININE 0.9 mg/dL (0.70-1.30); Calcium 7.8 mg/dL (8.5-10.1); Chloride 108 mmol/L (98-107); Glucose 159 mg/dL (74-106); Potassium 3.4 mmol/L (3.5-5.1); Sodium 140 mmol/L (136-145)
[2021-04-08] MEDS: Insulin Aspart 300 UNITS/3 ML PEN SC ×2 (10:32→17:04)
[2021-04-08 11:25] LABS: Lab Add On Test DONE
[2021-04-08 11:32] LABS: Magnesium 1.7 mg/dL (1.8-2.4)
--- NOTE | 2021-04-08 12:34 | DM INPTCON_ITS ---
Date of service: 04/08/21 Time of Service: 12:34 Diabetes Inpatient Consult Reason for Visit: IDDM DESCRIPTION/ASSESSMENT: 25 year old male admitted with DKA (BS 623mg/dl) with hx of DM1 with prerenal failure. A1C: 10.2% (04/07/21) Home DM meds: 10-14 u novolog at meals, 36 units lantus AM. Reports eating only twice daily and has difficulty remembering taking meal time insulin. BMI stable, wnl INTERVENTION: Provided diabetes/nutition education. Patient knowledgeable about ideal diet for DM. Interested in getting an insulin pump and continuous glucose monitor. His father (now in [place] [facility]) had insulin pump. Strong family hx of IDDM. Diabetes poorly controlled at this time. Ted's main concern is that he does not know when blood sugar gets too high or low. Will benefit from continuous glucose monitor that is synched with phone. Provided Dexcom G6 sensor to be set up with iphone. Does not have phone with him. Has follow up appt with screenplay writer on 04/15/21 for outpatient counseling. PLAN: follow up appt 04/15/21 at outpatient nutrition for diabetes self management education. Will need sensor refills (3 per month) until establishes care with PCP Time Spent in Nutritional Counseling and Treatment: 20
--- NOTE | 2021-04-08 15:16 | PGE_ITS ---
Date of Service Date of service: 04/08/21 Time of Service: 15:16 Assessment and Plan Assessment and plan (1) DKA (diabetic ketoacidoses): Status: Acute Assessment and plan: Insulin drip d/c'd. Anion gap now normal. Eating and tolerating intake. Adjusing basal / bolus insulin. community educator consult appreciate. Continuous glucose monitor will be initiated. (2) Tobacco use: Assessment and plan: NIcotine patch. (3) ADHD (attention deficit hyperactivity disorder): Assessment and plan: Not currently on any medications for ADHD. (4) Hypokalemia: Status: Acute Assessment and plan: Oral replacement. K improved to 3.4 today. Monitor. Subjective Subjective Patient reports: no new complaints, feels better, tolerating a regular diet, nausea, vomiting (emesis x 1 last PM but tolerating meals today.) and afebrile; denies shortness of breath Exam Narrative Exam Narrative: Sleeping. Readily wakens to verbal stimuli Const General: cooperative and no acute distress Nutritional Appearance: thin Orientation: oriented x3 HENMT Head: normocephalic and atraumatic Eyes General: appearance normal, both eyes and all related structures Sclera: sclerae normal Neck Neck: full ROM and JVD Resp Effort & Inspection: normal respiratory effort Auscultation: clear to auscultation bilaterally Cardio Rate: regular rate Rhythm: regular rhythm Heart Sounds: S1 normal and S2 normal GI Palpation: soft and tender (mild/diffuse) Skin General skin exam: no rashes or lesions noted Neuro General: moves all extremities Cranial Nerves: facial strength normal Cognition: normal cognition Speech: speech normal Extrem General: no pedal edema and no calf tenderness Objective Last Vital Signs Temp 36.6 C 04/08/21 12:49 Pulse 100 H 04/08/21 13:45 Resp 24 04/08/21 04:39 BP 117/64 04/08/21 13:45 Pulse Ox 97 04/08/21 00:00 Laboratory Results - last 24 hr 04/07/21 04/07/21 04/08/21 16:15 20:15 00:00 WBC RBC Hgb Hct MCV MCH MCHC RDW Plt Count MPV Immature Gran % Neutrophils % Lymphocytes % Monocytes % Eosinophils % Basophils % Nucleated RBC % Absolute Neutrophils Absolute Lymphocytes Absolute Monocytes Absolute Eosinophils Absolute Basophils Sodium 145 141 Potassium 3.6 3.0 L Cancelled Chloride 112 H 108 H Carbon Dioxide 16.8 L 16.0 L Anion Gap 16.2 H 17.0 H BUN 10 10 Creatinine 1.2 1.0 Estimated GFR/1.73 m2 >= 60.00 >= 60.00 Glucose 139 H 190 H Calcium 8.9 8.2 L Magnesium Add-On Test Request 04/08/21 04/08/21 04/08/21 01:34 06:07 06:07 WBC 9.47 RBC 4.55 Hgb 13.5 D Hct 39.2 L D MCV 86.2 MCH 29.7 MCHC 34.4 RDW 11.9 Plt Count 330 D MPV 9.4 Immature Gran % 0.2 Neutrophils % 75.0 Lymphocytes % 17.0 Monocytes % 7.3 Eosinophils % 0.2 Basophils % 0.3 Nucleated RBC % 0 Absolute Neutrophils 7.10 H Absolute Lymphocytes 1.61 Absolute Monocytes 0.69 Absolute Eosinophils 0.02 Absolute Basophils 0.03 Sodium 135 L 141 Potassium 3.1 L 3.3 L Chloride 101 109 H Carbon Dioxide 14.8 L 20.6 L Anion Gap 19.2 H 11.4 H BUN 7 6 L Creatinine 1.1 0.8 Estimated GFR/1.73 m2 >= 60.00 >= 60.00 Glucose 292 H D 120 H D Calcium 8.2 L 8.3 L Magnesium 1.9 Add-On Test Request 04/08/21 04/08/21 04/08/21 09:00 09:25 09:25 WBC RBC Hgb Hct MCV MCH MCHC RDW Plt Count MPV Immature Gran % Neutrophils % Lymphocytes % Monocytes % Eosinophils % Basophils % Nucleated RBC % Absolute Neutrophils Absolute Lymphocytes Absolute Monocytes Absolute Eosinophils Absolute Basophils Sodium 140 Potassium 3.4 L Chloride 108 H Carbon Dioxide 23.0 Anion Gap 9.0 BUN 5 L Creatinine 0.9 Estimated GFR/1.73 m2 >= 60.00 Glucose 159 H Calcium 7.8 L Magnesium Cancelled Add-On Test Request DONE 04/08/21 09:25 WBC RBC Hgb Hct MCV MCH MCHC RDW Plt Count MPV Immature Gran % Neutrophils % Lymphocytes % Monocytes % Eosinophils % Basophils % Nucleated RBC % Absolute Neutrophils Absolute Lymphocytes Absolute Monocytes Absolute Eosinophils Absolute Basophils Sodium Potassium Chloride Carbon Dioxide Anion Gap BUN Creatinine Estimated GFR/1.73 m2 Glucose Calcium Magnesium 1.7 L Add-On Test Request PAWSS Have you Been Recently Intoxicated or Drunk Within the Last 30 days?: No Have you Ever Experienced Previous Episodes of Alcohol Withdrawal?: No Have you ever Experienced Withdrawal Seizures?: No Have you ever Experienced Delirium Tremens(DT)s?: No Have you ever undergone Alcohol Rehabilitation Treatment (i.e, inpt ot outpatient treatment programs)?: No Have you ever Experienced Blackouts?: No Have you ever Combined Alcohol with other Downers within the last 90 days?: No Have you ever Combined Alcohol with any other Substance of Abuse during the last 90 days?: No Positive Blood Alcohol level on Presentation? [PCS.BAL]: No Evidence of Increased Autonomic Activity (i.e. HR>120, tremor, sweating, agitation, nausea)?: No Result: 0
[2021-04-08] MEDS: Enoxaparin 40 MG/0.4 ML SYR SC (16:22)
[2021-04-08] MEDS: Insulin Aspart 300 UNITS/3 ML PEN 6 UNITS SC (17:05)
--- NOTE | 2021-04-08 17:07 | W.PM.DS.N ---
Date of service: 04/08/21 Time of Service: 17:08 DS: Diagnosis Discharge Diagnosis (1) DKA (diabetic ketoacidoses): Status: Acute (2) Tobacco use: (3) ADHD (attention deficit hyperactivity disorder): (4) Hypokalemia: Status: Acute Discharge Plan Disposition Patient Disposition: HOME Condition: Improving Discharge Details Reason For Visit: DKA Admit Date/Time: 04/07/21 07:40 Admit Provider: Canelo Oliveros Attending Provider: Canelo Oliveros Primary Care Provider: Tessie Benjamin Hospital Course Hospital Course: Follow up with PCP in 1-2 weeks. Home Meds and New Rx's Prescriptions: New (DME) glucose sensor,implant-dexamet Device See Rx Instructions .Route Qty: 3 0RF Rx Instructions: As directed Continued nicotine 14 mg/24 hr Patch 24 Hour 14 mg transdermal DAILY PRN PRNQty: 30 0RF insulin lispro [Humalog KwikPen Insulin] 100 unit/mL Insulin Pen See Rx Instructions .ROUTE .COMPLEX Qty: 0 0RF Rx Instructions: Take 8 units of humalog with meals in addition to the sliding scale - 1 unit of humalog for every 50 points over 200. Call your PCP if your sugar is >400. Lantus Solostar U-100 Insulin 100 unit/mL (3 mL) Insulin Pen See Rx Instructions .ROUTE .COMPLEX Qty: 0 0RF Rx Instructions: take 10 units of lantus tonight before bed. Take 24 units of lantus tomorrow morning (03/27/2019). Take 30 units of lantus on am of 03/28/2019 and continue taking 30 units daily Discharge Instructions Activity:: Activity as Tolerated Equipment/Supplies:: Blood Glucose Monitor Diet:: Carb Counting Discharge Orders Discharge Orders: Discharge Order (Routine); Ordered 04/08/21 Ordered By: Canelo Oliveros DS: Summary Time Spent with Patient providing and/or coordinating discharge services: Greater than 30 minutes Status at Discharge Functional status at discharge: independent ambulation Overall status at discharge: patient is progressing back to baseline Mental Status: mental status grossly normal Speech and Movement: speech and movement normal Mood: congruent mood Affect: normal affect Exam Narrative Exam Narrative: Sleeping. Readily wakens to verbal stimuli Const General: cooperative, no acute distress, ill appearing and lethargic Nutritional Appearance: thin Orientation: oriented x3 [facility] Head: normocephalic and atraumatic Eyes General: appearance normal, both eyes and all related structures Sclera: sclerae normal Neck Neck: full ROM and JVD Resp Effort & Inspection: normal respiratory effort Auscultation: clear to auscultation bilaterally Cardio Rate: regular rate Rhythm: regular rhythm Heart Sounds: S1 normal and S2 normal GI Palpation: soft and tender (mild/diffuse) Skin General skin exam: no rashes or lesions noted Neuro General: moves all extremities Cranial Nerves: facial strength normal Cognition: normal cognition Speech: speech normal Extrem General: no pedal edema and no calf tenderness Psych Mental Status: mental status grossly normal Speech and Movement: speech and movement normal Mood: congruent mood Affect: normal affect DS: Data Vitals/I&O Vitals and I&O: Vital Signs Temperature 36.7 C 04/08/21 15:31 Temperature Source Temporal Artery Scan 04/08/21 15:31 Pulse 89 04/08/21 15:28 Pulse 97 H 04/08/21 04:39 Respiratory Rate 20 04/08/21 15:31 Respiratory Effort Non-Labored 04/08/21 15:31 Respiratory Depth Normal 04/08/21 15:31 Respiratory Pattern Normal 04/08/21 15:31 Blood Pressure 126/74 04/08/21 15:28 Blood Pressure Mean 85 04/08/21 15:28 Blood Pressure Position Supine 04/08/21 12:49 Pulse Oximetry 100 04/08/21 15:31 Oxygen Delivery Method Room Air 04/08/21 15:31 Oxygen Flow Rate 0 04/08/21 15:31 Pain Level 0 04/08/21 15:31 Intake & Output 04/07/21 04/08/21 04/08/21 23:59 11:59 23:59 Intake Total 1513.15 / 5650.900 2731.85 / 4091.85 1360 / 4091.85 Output Total 400 / 2550 1775 / 2425 650 / 2425 Balance 1113.15 / 3100.900 956.85 / 1666.85 710 / 1666.85 Intake: IV 1033.15 / 5170.900 1991.85 / 2991.85 1000 / 2991.85 Oral 480 / 480 740 / 1100 360 / 1100 Output: Urine 400 / 2550 1075 / 1725 650 / 1725 Emesis 700 / 700 Other: Urine Color Pale Straw Yellow Yellow Urine Appearance Clear Clear Clear Urine Odor None Foul Normal Comment voided 400cc's of medium yellow urine. sg-1.030. large +for ketones, trace for protein. voiding in urinal voiding independently in urinal. Emesis Description Retching Bile Gastric Occult Blood Negative Voiding Methods Urinal Urinal Urinal Data Completed and Pending Labs on day of discharge: Labs from last 24 hours 04/08/21 04/08/21 04/08/21 09:25 09:25 09:25 WBC RBC Hgb Hct MCV MCH MCHC RDW Plt Count MPV Immature Gran % Neutrophils % Lymphocytes % Monocytes % Eosinophils % Basophils % Nucleated RBC % Absolute Neutrophils Absolute Lymphocytes Absolute Monocytes Absolute Eosinophils Absolute Basophils Sodium 140 Potassium 3.4 L Chloride 108 H Carbon Dioxide 23.0 Anion Gap 9.0 BUN 5 L Creatinine 0.9 Estimated GFR/1.73 m2 >= 60.00 Glucose 159 H Calcium 7.8 L Magnesium 1.7 L Add-On Test Request DONE 04/08/21 04/08/21 04/08/21 09:00 06:07 06:07 WBC 9.47 RBC 4.55 Hgb 13.5 D Hct 39.2 L D MCV 86.2 MCH 29.7 MCHC 34.4 RDW 11.9 Plt Count 330 D MPV 9.4 Immature Gran % 0.2 Neutrophils % 75.0 Lymphocytes % 17.0 Monocytes % 7.3 Eosinophils % 0.2 Basophils % 0.3 Nucleated RBC % 0 Absolute Neutrophils 7.10 H Absolute Lymphocytes 1.61 Absolute Monocytes 0.69 Absolute Eosinophils 0.02 Absolute Basophils 0.03 Sodium 141 Potassium 3.3 L Chloride 109 H Carbon Dioxide 20.6 L Anion Gap 11.4 H BUN 6 L Creatinine 0.8 Estimated GFR/1.73 m2 >= 60.00 Glucose 120 H D Calcium 8.3 L Magnesium Cancelled 1.9 Add-On Test Request 04/08/21 04/08/21 04/07/21 01:34 00:00 20:15 WBC RBC Hgb Hct MCV MCH MCHC RDW Plt Count MPV Immature Gran % Neutrophils % Lymphocytes % Monocytes % Eosinophils % Basophils % Nucleated RBC % Absolute Neutrophils Absolute Lymphocytes Absolute Monocytes Absolute Eosinophils Absolute Basophils Sodium 135 L 141 Potassium 3.1 L Cancelled 3.0 L Chloride 101 108 H Carbon Dioxide 14.8 L 16.0 L Anion Gap 19.2 H 17.0 H BUN 7 10 Creatinine 1.1 1.0 Estimated GFR/1.73 m2 >= 60.00 >= 60.00 Glucose 292 H D 190 H Calcium 8.2 L 8.2 L Magnesium Add-On Test Request [facility] All Active Problems Hypokalemia (Acute) Hyperglycemia (Acute) Acidosis (Acute) Vomiting (Acute) Dehydration, severe (Acute) DVT prophylaxis (Acute) Discharge planning issues (Acute) Proteinuria due to type 1 diabetes mellitus (Acute) Prerenal acute renal failure (Acute) Leucocytosis (Acute) Dehydration (Acute) Type 1 diabetes mellitus (Acute) DKA (diabetic ketoacidoses) (Acute) Medical History ADHD (attention deficit hyperactivity disorder) Hepatitis C Right hand fracture s/p pinning, [facility] Tobacco use Social History Smoking/Tobacco Use Status: Current every day Smoking risk assessment performed?: Yes Alcohol Intake: former Year quit: 2019 Drug use: Occasionally Substance use type: marijuana Household members: family Do you feel safe at home: Yes Do you feel safe in your relationship?: Yes Additional Social history: Currently lives with his mother. Previously employed until the onset of type 1 diabetes. Completed 12th grade.
== END 2021-04-08 18:27 | disposition home or self-care (01) | DRG 639 ==
LOC: ER 07:20 → ICU 10:34
PROVIDERS: Internal Medicine; Admitting Provider Family Medicine; Emergency Provider Student in an Organized Health Care Education/Training Program; PCP Physician Assistant Medical; Visit Provider Family Medicine
DX: E10.10 Type 1 diabetes mellitus with ketoacidosis without coma (principal); F17.210 Nicotine dependence, cigarettes, uncomplicated; F90.9 Attention-deficit hyperactivity disorder, unspecified type; Z86.19 Personal history of other infectious and parasitic diseases; E86.0 Dehydration; E87.6 Hypokalemia; Z20.822 Contact with and (suspected) exposure to COVID-19
CPT/HCPCS: 36415; 36416; 80048; 80053; 82805; 82962; 83690; 87635; 93005; 96361; 96365; 96366; 96368; 96375; 99291; 99292; J1650; 81003; 81015; 83036; 83605; 83735; 84132; 85025; 93010; 99219; 99223; J0610; J2405; J2765; J3480; J7060

== ENCOUNTER 2021-05-10 20:26 | Outpatient (REF) | payer MEDICAID, SELFPAY ==
[2021-05-10 19:40] LABS: ALT 16 U/L (16-63); AST 15 U/L (15-37); Albumin 3.6 g/dL (3.4-5.0); Alkaline Phosphatase 88 U/L (46-116); Anion Gap 8.6 mmol/L (3-11); BUN 12 mg/dL (7-18); Bilirubin, Total 0.3 mg/dL (0.2-1.0); CO2 28.4 mmol/L (21.0-32.0); CREATININE 0.8 mg/dL (0.70-1.30); Calcium 8.5 mg/dL (8.5-10.1); Calculated LDL 99 mg/dL (<100); Chloride 101 mmol/L (98-107); Cholesterol 153 mg/dL (<200); Glucose 334 mg/dL (74-106); HDL Cholesterol 41 mg/dL (40-60); Potassium 4.7 mmol/L (3.5-5.1); Sodium 138 mmol/L (136-145); Total Protein 6.9 g/dL (6.4-8.2); Triglyceride 65 mg/dL (<150)
[2021-05-10 20:07] LABS: Hemoglobin A1C 9.2 % (<5.7)
== END 2021-05-10 20:27 | disposition home or self-care (01) ==
LOC: NCHCN 20:26
PROVIDERS: PCP Physician Assistant Medical; Visit Provider Physician Assistant Medical
DX: E10.9 Type 1 diabetes mellitus without complications (principal)
CPT/HCPCS: 80053; 80061; 83036

== ENCOUNTER 2022-09-20 20:01 | Outpatient (REF) | payer MEDICAID, SELFPAY ==
[2022-09-20 21:19] LABS: ALT 13 U/L (16-63); AST 16 U/L (15-37); Albumin 4.1 g/dL (3.4-5.0); Alkaline Phosphatase 105 U/L (46-116); Anion Gap 10.3 mmol/L (3-11); BUN 21 mg/dL (7-18); Bilirubin, Total 0.3 mg/dL (0.2-1.0); CO2 26.7 mmol/L (21.0-32.0); Calcium 9.2 mg/dL (8.5-10.1); Chloride 101 mmol/L (98-107); Estimated GFR 107.12 (mL/min/1.73m2); Glucose 396 mg/dL (74-106); Potassium 4.3 mmol/L (3.5-5.1); Sodium 138 mmol/L (136-145); Total Protein 7.8 g/dL (6.4-8.2)
[2022-09-20 22:05] LABS: Calculated LDL 87 mg/dL (<100); Cholesterol 166 mg/dL (<200); HDL Cholesterol 46 mg/dL (40-60); Triglyceride 168 mg/dL (<150)
[2022-09-20 22:43] LABS: Hemoglobin A1C 11.2 % (<5.7)
== END 2022-09-20 20:02 | disposition home or self-care (01) ==
LOC: NCHCN 20:01
PROVIDERS: PCP Physician Assistant Medical; Visit Provider Physician Assistant Medical
DX: E10.9 Type 1 diabetes mellitus without complications (principal); E78.1 Pure hyperglyceridemia
CPT/HCPCS: 80053; 80061; 83036

== ENCOUNTER 2023-04-17 17:40 | Outpatient (REF) | payer MEDICAID, SELFPAY | END 2023-04-17 17:41 | disposition home or self-care (01) | LOC: LBN 17:40 | PROVIDERS: PCP Physician Assistant Medical; Visit Provider Nurse Practitioner Family | DX: L08.89 Other specified local infections of the skin and subcutaneous tissue (principal); H60.11 Cellulitis of right external ear | CPT/HCPCS: 87077; 87070; 87186; 87205 ==